=== PATIENT | male | born 1950 | race Caucasian/White ===

== ENCOUNTER 2019-04-03 08:07 | Emergency (ER) | payer MEDICARE, SELFPAY ==
--- NOTE | ~2019-04-03 | CT_ITS ---
EXAMINATION: CT abdomen pelvis w con DATE: 04/03/2019 08:52 INDICATION: Abdominal pain, fever. TECHNIQUE: Computed tomography (CT) of the abdomen and pelvis was performed with 100 cc Omnipaque 350 intravenous contrast. Automated exposure control and iterative reconstruction technique were employe d. Exam dose: 367.30 mGy-cm total exam DLP. COMPARISON: None. FINDINGS: Small fat-containing right foramen of Bochdalek hernia. There are 2 calcified left lower lobe pulmonary granulomas and lower left calcified mediastinal nodes . Normal heart size. Coronary artery calcification. No pericardial or pleural effusion. The gallbladder is distended with borderline gallbladder wall thickening. No pericholecystic fluid or stranding. No bile duct or pancreatic duct dilatation. There is mild surface nodularity of the liver suggesting possible cirrhosis. No hepatic space-occupyi ng mass lesion is detected. Spleen measures approximately 11.8 cm vertical dimension, within upper li mits of normal. There are calcified splenic granulomas. No pancreatic mass lesion or calcification. Normal morphology of the adrenal glands. Bilateral renal atrophy, right greater than left. Other than very occasional probable small renal cys ts, no renal mass lesion is noted. No urinary tract calculus or hydroureteronephrosis. The urinary bl adder is unremarkable. Prostate calcifications. There is atherosclerotic calcification of the abdominal aorta, iliac and femoral arteries, but no ane urysm. No intraperitoneal or retroperitoneal or pelvic mass lesion or adenopathy or ascites. Normal appendix. No bowel obstruction. There is a prominent amount of fecal material within the rectu m and left colon. No intraperitoneal free air. Very small fat-containing inguinal hernia. Multilevel degenerative disc disease of the lumbar spine, especially at L2-3 and L4-5. IMPRESSION: Distended gallbladder with borderline gallbladder wall thickening. Consider gallbladder u ltrasound and possibly radionuclide hepatobiliary scan as clinically appropriate Surface nodularity of liver, suggesting cirrhosis Renal atrophy and probable small renal cysts Reviewed, dictated and finalized at [facility]. Reviewed, dictated and finalized at location [facility]. CTOR OF MAINTENANCE IMPRESSION: Distended gallbladder with borderline gallbladder wall thickening. Consider gallbladder ultrasound and possibly radionuclide hepatobiliary scan as clinically appropriate Surface nodularity of liver, suggesting cirrhosis Renal atrophy and probable small renal cysts
--- NOTE | ~2019-04-03 | US_ITS ---
EXAMINATION: US right upper quadrant DATE: 04/03/2019 09:57 INDICATION: Abdominal pain. Nausea and vomiting. TECHNIQUE: Multiple grayscale and Doppler ultrasound images of the abdomen were obtained. COMPARISON: CT abdomen and pelvis 04/03/2019 FINDINGS: The visualized portions of the head, body, and tail of the pancreas are normal. The pancrea s is normal without focal lesion. The liver demonstrates coarsened echotexture and surface nodularity , consistent with cirrhosis. The gallbladder is distended and contains sludge. No gallstones or gallb ladder wall thickening. There was no sonographic Orourke sign. The common duct is dilated to 9 mm. IMPRESSION: 1. Gallbladder sludge and gallbladder distention, which may be secondary to fasting. No gallstones or gallbladder wall thickening to suggest acute cholecystitis. 2. Mildly dilated common duct. 3. Cirrhosis of the liver. Reviewed, dictated and finalized at location [facility]. ER SERVICE ATTENDANT IMPRESSION: 1. Gallbladder sludge and gallbladder distention, which may be secondary to fas ting. No gallstones or gallbladder wall thickening to suggest acute cholecystit is. 2. Mildly dilated common duct. 3. Cirrhosis of the liver.
[2019-04-03 08:05] VITALS: BP 154/89; PULSE 102; RESP 20; TEMP 37.9; O2SAT 95
--- NOTE | 2019-04-03 08:11 | ED.NAVMDI ---
HPI - Nausea/Vomiting/Diarrhea General Chief complaint: Nausea/Vomiting/Diarrhea Stated complaint: N/D/COUGH/FEVER Time Seen by Provider: 04/03/19 08:10 Source: patient Mode of arrival: EMS Limitations: no limitations History of Present Illness HPI Narrative: Pt is a 68 y/o male who presents to the ED, via EMS, with c/o N/V/D that started yesterday. Pt reports associated fever and ABD pain, but denies a cough. He has a H/o cirrhosis but states he has not drank EtOH in 30 years. MD elicited complaint: nausea, vomiting and diarrhea Onset (ago): day(s) (yesterday) Associated nausea: Yes Associated abdominal pain: Yes Location of pain: diffuse Associated symptoms: fever/chills Treatment prior to arrival: none Related Data Home Medications Medication Instructions Recorded Confirmed amlodipine 10 mg PO DAILY 02/19/19 02/19/19 furosemide [Lasix] 20 mg PO DAILY 02/19/19 02/19/19 gabapentin 600 mg PO TID 02/19/19 02/19/19 hydromorphone [Dilaudid] 8 mg PO Q6H PRN 02/19/19 02/19/19 lansoprazole 30 mg PO DAILY 02/19/19 02/19/19 lubiprostone [Amitiza] 24 mcg PO BID 02/19/19 02/19/19 ondansetron HCl 8 mg PO Q8H 02/19/19 02/19/19 trazodone 300 mg PO HS 02/19/19 02/19/19 zolpidem 12.5 mg PO HS PRN 02/19/19 02/19/19 Allergies Allergy/AdvReac Type Severity Reaction Status Date / Time haloperidol Allergy Severe ANAPHYLAXIS Verified 04/03/19 08:11 Review of Systems Review of Systems: All systems reviewed & are unremarkable except as noted in HPI and below Constitutional: Constitutional: Reports fever(s) Respiratory: Respiratory: Denies cough Gastrointestinal: Gastrointestinal: Reports abdominal pain, Reports diarrhea, Reports nausea and Reports vomiting PMFSH Past Medical History Medical History Arthritis Cirrhosis GERD (gastroesophageal reflux disease) HTN (hypertension) Leg fracture, left Liver disease Surgical History Surgical History History of back surgery Hx of tonsillectomy Social History Social History Smoking status: Never smoker Exam Narrative: Exam Narrative: APPEARANCE: No acute distress, nontoxic, resting in bed HEENT: Normocephalic, atraumatic, OMM RESPIRATORY: No respiratory distress, clear to auscultation bilaterally with no rhonchi wheezing or rales CARDIOVASCULAR: RRR s murmur ABDOMINAL: Soft, nondistended, diffusely tender to palpation, no rebound or guarding MUSCULOSKELETAl: Moves all extremities. No clubbing, cyanosis or edema. NEURO: Awake and alert. Following commands, speech normal, no focal deficits SKIN:: Warm, dry. Normal Color PSYCHIATRIC: Normal affect/mood Course Course Emergency Course: Patient able to drink in ED with no emesis Patient states that they are feeling much better at this time. States abdominal pain has resolved. Repeat abdominal exam shows the patient's abdomen to be soft and nontender. Discussed with patient results of workup and diagnosis. Discussed need for follow-up with primary care physician, reasons to return to the emergency department in proper use of medication. Patient understands and agrees to current treatment plan Consultations Consultation #1: Discussed case with Dr. Mortensen, the general surgeon. Recommends D/C and will follow up. Date: 04/03/19 Time: 12:13 Vital Signs Vital signs: Vital Signs Temperature 100.2 F H 04/03/19 08:05 Pulse Rate 102 H 04/03/19 08:05 Respiratory Rate 20 04/03/19 08:05 Blood Pressure 154/89 H 04/03/19 08:05 Pulse Oximetry 95 04/03/19 08:05 Temperature 98.7 F 04/03/19 11:55 Pulse Rate 68 04/03/19 10:31 Respiratory Rate 16 04/03/19 10:31 Blood Pressure 114/75 04/03/19 10:31 Pulse Oximetry 96 04/03/19 10:31 MDM - Nausea/Vomiting/Diarrhea MDM Narrative Medical decision making narrative: Patient's abdomen is soft without significant pain or sig
[2019-04-03 08:27] LABS: Basophils Percent Auto 0.2 % (0.2-1.2); Eosinophils Percent Auto 0.3 % (0-4.4); Hematocrit 41.4 % (42.0-52.0); Hemoglobin 13.2 g/dL (14.0-18.0); Immature Granulocyte Absolute 0.03 K/mm3 (0.00-0.031); Immature Granulocyte Percent A 0.3 % (0-0.5); Lymphocytes Absolute Auto 0.96 K/mm3 (0.9-3.2); Lymphocytes Percent Auto 10.5 % (18.3-44.2); Mean Corpuscular HGB Conc 31.9 g/dl (32-36); Mean Corpuscular Hemoglobin 29.2 pg (26-34); Mean Corpuscular Volume 91.6 fl (80-100); Mean Platelet Volume 10.4 fl (7.4-10.4); Monocytes Percent Auto 11.2 % (2.6-8.5); Neutrophils Absolute Auto 7.1 K/mm3 (1.3-6.7); Neutrophils Percent Auto 77.5 % (45.5-73.1); Platelet Count Result 108 k/mm3 (150-375); Red Blood Count 4.52 M/mm3 (4.6-6.20); Red Cell Distribution Width 15.2 % (11.5-14.5); White Blood Count 9.2 K/mm3 (4.5-10.0)
[2019-04-03] MEDS: LACTATED RINGERS 1,000 ML 999 ML IV CONT (08:33)
[2019-04-03 08:36] LABS: Prothrombin Time 12.8 Seconds (11.1-14.7)
[2019-04-03 08:37] LABS: Partial Thromboplastin Time 27.2 SECONDS (22.3-36.8)
[2019-04-03 08:39] LABS: Alanine Aminotransferase 126 U/L (4-50); Albumin Level 3.9 g/dL (3.5-5.1); Alkaline Phosphatase 205 U/L (38-126); Aspartate Amino Transferase 143 U/L (17-59); Bilirubin,Total 0.8 mg/dL (0.2-1.3); Blood Urea Nitrogen 27 mg/dL (9-20); Carbon Dioxide 29 mmol/L (22-30); Chloride 94 mmol/L (98-107); Estimated CRCL calculation 56 ml/min; Estimated Glomerular Filt Rate > 60; Glucose 341 mg/dL (75-110); Lipase 159 U/L (23-300); Potassium 3.9 mmol/L (3.4-5.0); Sodium 134 mmol/L (137-145)
[2019-04-03 10:07] LABS: Add Urine Microscopic? YES; Appearance Urine Clear (Clear); Bilirubin Urine Negative (Negative); Blood Urine Negative (Negative); Color Urine Yellow (Yellow); Glucose Urine UA 3+ mg/dL (Negative); Ketones Urine Negative (Negative); Leukocyte Esterase Ur Negative LEU/UL (Negative); Mucus Urine Rare /lpf; Nitrate Urine Negative (Negative); Protein Urine 2+ mg/dL (Negative); RBC Urine 0-2 /hpf (0-2); Urobilinogen Urine Negative mg/dL (<2.0); WBC Urine 0-3 /hpf
[2019-04-03 10:15] LABS: Specific Grav Ur 1.038 (1.001-1.035)
[2019-04-03 10:31] VITALS: BP 114/75; PULSE 68; RESP 16; O2SAT 96
--- NOTE | 2019-04-03 11:35 | PC.NURSE ---
Tolerating liquids well. No vomiting or diarrhea since arrival.
[2019-04-03 11:55] VITALS: TEMP 37.1
== END 2019-04-03 12:24 | disposition home or self-care (01) ==
PROVIDERS: Emergency Provider Emergency Medicine
DX: R11.2 Nausea with vomiting, unspecified (principal); R10.9 Unspecified abdominal pain; I10 Essential (primary) hypertension; K74.60 Unspecified cirrhosis of liver; K21.9 Gastro-esophageal reflux disease without esophagitis; M19.90 Unspecified osteoarthritis, unspecified site; R93.2 Abnormal findings on diagnostic imaging of liver and biliary tract
CPT/HCPCS: 36415; 74177; 76705; 80053; 81001; 83690; 85025; 85610; 85730; 87804; 96360; 99284; J7120; Q9967

== ENCOUNTER 2019-08-24 12:09 | Emergency (ER) | payer MEDICARE, SELFPAY ==
--- NOTE | ~2019-08-24 | XR_ITS ---
[XR ribs LT 2V w CXR 2V ] INDICATION: Left rib pain after recent fall TECHNIQUE: Frontal projection of the upper left ribs, frontal projection of the lower left ribs, obli que projection of all the left ribs, frontal inspiratory chest x-ray for interpretation. FINDINGS: There are no displaced rib fractures identified. There are no soft tissue abnormality see n. There is bibasilar airspace disease which may represent atelectasis or pneumonia. Calcified granul antonio left lung base. There is a right shoulder arthroplasty. IMPRESSION: 1:No acute displaced rib fractures. 2:Bibasilar infiltrates, atelectasis versus pneumonia. Reviewed, dictated and finalized at location A.
[2019-08-24 12:12] VITALS: BP 107/75; PULSE 90; RESP 20; TEMP 36.8; O2SAT 89
--- NOTE | 2019-08-24 12:24 | ECG_ITS ---
Measurements Intervals [place] Rate: 67 P: 50 NH: 164 QRS: -32 QRSD: 101 T: 38 QT: 314 QTc: 333 Interpretive Statements SINUS RHYTHM LEFT AXIS DEVIATION DELAYED PRECORDIAL R/S TRANSITION INFERIOR INFARCT, AGE INDETERMINATE BORDERLINE T WAVE ABNORMALITY- HIGH LATERAL LEADS BASELINE WANDER- I, II, AVR, AVL, AVF, V4-V6 ABNORMAL ECG Electronically Signed On 08-24-2019 14:29:10 CDT by Mainor Salinas D.O.
[2019-08-24 13:02] LABS: Basophils Percent Auto 0.5 % (0.2-1.2); Eosinophils Absolute Auto 0.1 K/mm3 (0-0.3); Eosinophils Percent Auto 2.3 % (0-4.4); Hematocrit 29.4 % (42.0-52.0); Hemoglobin 9.2 g/dL (14.0-18.0); Immature Granulocyte Absolute 0.01 K/mm3 (0.00-0.031); Immature Granulocyte Percent A 0.2 % (0-0.5); Lymphocytes Absolute Auto 0.77 K/mm3 (0.9-3.2); Lymphocytes Percent Auto 18.1 % (18.3-44.2); Mean Corpuscular HGB Conc 31.3 g/dl (32-36); Mean Corpuscular Hemoglobin 27.1 pg (26-34); Mean Corpuscular Volume 86.7 fl (80-100); Mean Platelet Volume 9.5 fl (7.4-10.4); Monocytes Absolute Auto 0.7 K/mm3 (0.1-0.6); Monocytes Percent Auto 16.7 % (2.6-8.5); Neutrophils Absolute Auto 2.7 K/mm3 (1.3-6.7); Neutrophils Percent Auto 62.2 % (45.5-73.1); Platelet Count Result 119 k/mm3 (150-375); Red Blood Count 3.39 M/mm3 (4.6-6.20); Red Cell Distribution Width 18.1 % (11.5-14.5); White Blood Count 4.3 K/mm3 (4.5-10.0)
[2019-08-24 13:11] LABS: Blood Urea Nitrogen 21 mg/dL (9-20); Calcium 7.6 mg/dL (8.4-10.2); Carbon Dioxide 34 mmol/L (22-30); Chloride 97 mmol/L (98-107); Estimated CRCL calculation 48 ml/min; Estimated Glomerular Filt Rate 60; Glucose 287 mg/dL (75-110); Potassium 3.4 mmol/L (3.4-5.0); Sodium 134 mmol/L (137-145)
--- NOTE | 2019-08-24 14:31 | PCRCNOTE ---
Dr. Feng no longer wants ABG. He will cancel.
--- NOTE | 2019-08-24 14:32 | ED.GENADULT ---
HPI - General Adult General Chief complaint: Shortness of Breath/Dyspnea Stated complaint: WEAKNESS, FALL LAST WEEK Time Seen by Provider: 08/24/19 14:21 Source: patient History of Present Illness HPI narrative: Patient 69 years old white male came with pain at the left chest after a fall 1 week ago, tripped and fell at home. Patient denies loss of consciousness, head, neck or back injury. Lately patient have trouble breathing because of pain, pain gets worse with breathing and better remaining still. Related Data Home Medications Medication Instructions Recorded Confirmed amlodipine 10 mg PO DAILY 02/19/19 02/19/19 furosemide [Lasix] 20 mg PO DAILY 02/19/19 02/19/19 gabapentin 600 mg PO TID 02/19/19 02/19/19 hydromorphone [Dilaudid] 8 mg PO Q6H PRN 02/19/19 02/19/19 lansoprazole 30 mg PO DAILY 02/19/19 02/19/19 lubiprostone [Amitiza] 24 mcg PO BID 02/19/19 02/19/19 ondansetron HCl 8 mg PO Q8H 02/19/19 02/19/19 trazodone 300 mg PO HS 02/19/19 02/19/19 zolpidem 12.5 mg PO HS PRN 02/19/19 02/19/19 Allergies Allergy/AdvReac Type Severity Reaction Status Date / Time haloperidol Allergy Severe ANAPHYLAXIS Verified 04/03/19 08:11 Review of Systems Review of Systems: Narrative: CONSTITUTIONAL: Denies fever, chills, or sweats. EYES: Denies visual changes, redness, or discharge. ENT: Denies rhinorrhea, congestion, sore throat, or otalgia. CARDIOVASCULAR: Denies chest pain, palpitations, or edema. RESPIRATORY: Denies cough or dyspnea. GASTROINTESTINAL: Denies abdominal pain, nausea, vomiting, or diarrhea. GENITOURINARY: Denies dysuria or hematuria. SKIN: Denies rash or itching. MUSCULOSKELETAL: Denies back pain, joint pain, or myalgia. NEUROLOGIC: Denies headache, numbness, or weakness. PSYCHIATRIC: Denies anxiety or depression. [facility] Past Medical History Medical History Arthritis Cirrhosis GERD (gastroesophageal reflux disease) HTN (hypertension) Leg fracture, left Liver disease Surgical History Surgical History History of ankle surgery 1983 History of back surgery History of shoulder surgery 2019 Hx of tonsillectomy Social History Social History Smoking status: Former smoker Alcohol intake: former Exam Narrative: Exam Narrative: General appearance: Well-developed, well-nourished Skin: Normal color Head: Normocephalic, nontraumatic Eyes: Clear conjunctiva ENT: Oropharynx normal, ears normal, nose normal Neck: Supple, nontender Chest and respiratory: Airway patent, no respiratory distress, no accessory muscle use Heart: Regular rate/rhythm Abdomen: Soft, nontender, no organomegaly, quiet bowel sounds Vascular: Normal peripheral pulses, normal capillary refill. Musculoskeletal: Normal range of motion, nontender back. Mild diffuse left chest tenderness, no bruises, no swelling or rash Neurologic: Alert and oriented ?3, [employer] HEL[employer] is normal as tested, no gross motor deficit Course Course Emergency Course: Unchanged Vital Signs Vital signs: Vital Signs Temperature 36.8 C 08/24/19 12:12 Pulse Rate 90 08/24/19 12:12 Respiratory Rate 08/24/19 12:12 Blood Pressure 107/75 08/24/19 12:12 Pulse Oximetry 89 L 08/24/19 12:12 Temperature 36.8 C 08/24/19 12:12 Pulse Rate 90 08/24/19 12:12 Respiratory Rate 20 08/24/19 12:12 Blood Pressure 107/75 08/24/19 12:12 Pulse Oximetry 89 L 08/24/19 12:12 Medical Decision Making [facility] Narrative Medical decision making narrative: Chest wall contusion versus rib fracture is my concern. Chest x-ray ordered.
[2019-08-24 14:44] VITALS: BP 102/78; PULSE 88; RESP 18; O2SAT 99
== END 2019-08-24 14:47 | disposition home or self-care (01) ==
PROVIDERS: General Practice; Emergency Provider Emergency Medicine
DX: S20.212A Contusion of left front wall of thorax, initial encounter (principal); M19.90 Unspecified osteoarthritis, unspecified site; K74.60 Unspecified cirrhosis of liver; K21.9 Gastro-esophageal reflux disease without esophagitis; I10 Essential (primary) hypertension; K76.9 Liver disease, unspecified; Z87.891 Personal history of nicotine dependence; W01.0XXA Fall on same level from slipping, tripping and stumbling without subsequent striking against object, initial encounter; R94.31 Abnormal electrocardiogram [ECG] [EKG]
CPT/HCPCS: 36415; 71046; 71100; 80048; 85025; 93005; 99284

== ENCOUNTER 2019-11-04 16:32 | Outpatient (CLI) | payer MEDICARE, SELFPAY ==
--- NOTE | ~2019-11-04 | XR_ITS ---
XR abdomen/kub 1V 11/04/2019 17:01 Indication: Severe malnutrition. Small bowel feeding tube. Procedure: KUB Comparison: No prior studies for comparison. Findings: Feeding tube tip in the jejunum. Nonspecific bowel gas pattern with moderate gas in the tra nsverse colon. No obstruction. Calcification left upper abdomen, likely calcified granuloma. There is pneumobilia. Correlate for previous sphincterotomy. Impression: 1: Feeding tube tip in the jejunum. 2: Pneumobilia. Correlate for previous sphincterotomy and/or cholecystectomy. Reviewed, dictated and finalized at location A. Impression: 1: Feeding tube tip in the jejunum. 2: Pneumobilia. Correlate for previous sphincterotomy and/or cholecystectomy.
== END 2019-11-04 16:33 | disposition home or self-care (01) ==
DX: E43 Unspecified severe protein-calorie malnutrition (principal); Z93.4 Other artificial openings of gastrointestinal tract status
CPT/HCPCS: 74018

== ENCOUNTER 2019-11-08 18:46 | Emergency (ER) | payer MEDICARE, SELFPAY ==
[2019-11-08 18:50] VITALS: BP 97/64; PULSE 70; RESP 17; TEMP 36.3; O2SAT 96
--- NOTE | 2019-11-08 19:05 | ED.GENADULT ---
HPI - General Adult General Chief complaint: Unspecified Stated complaint: need feeding tube removed Time Seen by Provider: 11/08/19 19:04 History of Present Illness HPI narrative: He has a Dobhoff tube in for feedings 2/ to malnutrition. He reports that the tube is clogged and he wants it out. He says that it is supposed to come out tomorrow anyway. His home health nurse tried flushing with hot and cold water without success. She apparently contacted Dr. Mota, who is managing the tube, and was not given the okay to remove the tube today. He reports that his is able to tolerate PO. The tube is uncomfortable and he feels that it gets in the way of him eating. Related Data Home Medications Medication Instructions Recorded Confirmed amlodipine 10 mg PO DAILY 02/19/19 02/19/19 furosemide [Lasix] 20 mg PO DAILY 02/19/19 02/19/19 gabapentin 600 mg PO TID 02/19/19 02/19/19 hydromorphone [Dilaudid] 8 mg PO Q6H PRN 02/19/19 02/19/19 lansoprazole 30 mg PO DAILY 02/19/19 02/19/19 lubiprostone [Amitiza] 24 mcg PO BID 02/19/19 02/19/19 ondansetron HCl 8 mg PO Q8H 02/19/19 02/19/19 trazodone 300 mg PO HS 02/19/19 02/19/19 zolpidem 12.5 mg PO HS PRN 02/19/19 02/19/19 Allergies Allergy/AdvReac Type Severity Reaction Status Date / Time haloperidol Allergy Severe ANAPHYLAXIS Verified 11/08/19 18:47 Review of Systems Review of Systems: All systems reviewed & are unremarkable except as noted in HPI and below Constitutional: Constitutional: Denies fever(s) ENT: Denies epistaxis and Denies sore throat Cardiovascular: Cardiovascular: Denies chest pain Respiratory: Respiratory: Denies dyspnea Gastrointestinal: Gastrointestinal: Denies abdominal pain, Denies nausea and Denies vomiting PMFSH Past Medical History Medical History Arthritis Cirrhosis GERD (gastroesophageal reflux disease) HTN (hypertension) Leg fracture, left Liver disease Surgical History Surgical History History of ankle surgery 1983 History of back surgery History of shoulder surgery 2019 Hx of tonsillectomy Social History Social History Smoking status: Former smoker Alcohol intake: former Gender identity (if verbalized by the patient): Male Exam Const: General: no acute distress, alert and ill appearing chronically Orientation/consciousness: patient oriented x3 HENMT: Other: Dobhoff tube in place with tie through septum Resp: Effort & Inspection: normal respiratory effort Auscultation: clear to auscultation bilaterally Cardio: Rate: regular rate Rhythm: regular rhythm GI: Inspection: non-distended GI Palp: Yes Soft to palpation and No Tenderness to palpation present (GI) Skin: General skin exam: normal color Neuro: General: patient oriented x3 and moves all extremities Speech: normal speech Extrem: General: normal to inspection Psych: Appearance: grossly normal Mental Status: mental status grossly normal Course Vital Signs Vital signs: Vital Signs Temperature 36.3 C L 11/08/19 18:50 Pulse Rate 70 11/08/19 18:50 Respiratory Rate 17 11/08/19 18:50 Blood Pressure 97/64 L 11/08/19 18:50 Pulse Oximetry 96 11/08/19 18:50 Temperature 36.3 C L 11/08/19 18:50 Pulse Rate 70 11/08/19 18:50 Respiratory Rate 17 11/08/19 18:50 Blood Pressure 99/72 L 11/08/19 19:12 Pulse Oximetry 96 11/08/19 18:50 Medical Decision Making MDM Narrative Medical decision making narrative: We will attempt to flush the tube. If this is not successful I will contact Dr. Mota for recommendations Tube remained clogged. Dr. Mota contacted. Okayed tube removal. Tube removed without difficulty Medical Records Medical records reviewed: Yes I reviewed the patient's medical records. Vital Signs Vital Signs: Vital Signs Temperature 36.3 C L 10/26
[2019-11-08 19:12] VITALS: BP 99/72
--- NOTE | 2019-11-08 20:25 | PC.NURSE ---
EDP ordered to have dubhoff removed via verbal order readback. Dubhoff removed.
[2019-11-08 20:33] VITALS: BP 117/76; PULSE 66; RESP 12; O2SAT 99
== END 2019-11-08 20:34 | disposition home or self-care (01) ==
PROVIDERS: Emergency Provider Emergency Medicine
DX: K94.23 Gastrostomy malfunction (principal); Z87.891 Personal history of nicotine dependence; M19.90 Unspecified osteoarthritis, unspecified site; K74.60 Unspecified cirrhosis of liver; K21.9 Gastro-esophageal reflux disease without esophagitis; I10 Essential (primary) hypertension
CPT/HCPCS: 99282

== ENCOUNTER 2019-11-15 00:15 | Emergency (ER) | payer MEDICARE, SELFPAY ==
[2019-11-15] VITALS (10 sets, daily range): BP systolic 92–105; BP diastolic 55–72; PULSE 57–84; RESP 16–20; TEMP 36.6–36.9; O2SAT 96–100
--- NOTE | ~2019-11-15 | XR_ITS ---
XR chest 1V portable DATE: 11/15/2019 01:27 INDICATION: Headache. Recent cholecystectomy. Bronchitis. Hypertension. TECHNIQUE: Portable AP chest on 11/15/2019 at 0123 hours COMPARISON: 08/24/2019 AP and lateral chest FINDINGS: There is minimal infiltrate or atelectasis at the lung bases. The lungs otherwise appear cl ear. Heart size. Aortic calcification. There is old pulmonary granulomatous disease. Diffuse osteopenia. Right glenohumeral joint arthroplasty. Status post anterior cervical spine fusion . IMPRESSION: Minimal infiltrate or atelectasis at the lung bases Reviewed, dictated and finalized at location A.
--- NOTE | ~2019-11-15 | CT_ITS ---
EXAMINATION: CT brain wo con DATE: 11/15/2019 01:20 INDICATION: Headache TECHNIQUE: Computed tomography (CT) of the head was performed without intravenous contrast. The mA wa s adjusted according to patient size. Iterative reconstruction technique was employed. Exam dose: 60 5.33 mGy-cm total exam DLP. COMPARISON: None FINDINGS: No intracranial mass lesion or hemorrhage or cerebrovascular accident. No midline shift or mass effect. There is moderate cerebral and cerebellar volume loss. No subdural or epidural hematoma. No fracture or bone destruction of the cranial vault. There is a 7 mm osteoma of the left frontal sin us. Included paranasal sinuses and mastoid air cells are otherwise unremarkable. IMPRESSION: No significant intracranial abnormality Reviewed, dictated and finalized at [facility]. Reviewed, dictated and finalized at location A.
[2019-11-15] MEDS: METOCLOPRAMIDE HCL INJ 10 MG/2 ML VIAL IV PUSH (01:26)
[2019-11-15] MEDS: diphenhydrAMINE HCl INJ 50 MG/ML VIAL 25 MG IV PUSH (01:26)
[2019-11-15] MEDS: SODIUM CHLORIDE 0.9% IV 1,000 ML 999 ML IV CONT ×2 (01:26→04:05)
--- NOTE | 2019-11-15 01:34 | ED.HA ---
HPI - Headache General Chief Complaint: Headache Stated Complaint: headache Time Seen by Provider: 11/15/19 00:46 Source: patient Mode of arrival: EMS Limitations: no limitations History of Present Illness HPI Narrative: This patient is a 69 year old male with history of cirrhosis, migraine headaches, hepatitis who presents for evaluation of a migraine headache. He states he developed a frontal headache 5 hours ago. His headache has been constant. He denies associated nausea or vomiting. He reports some blurred vision. This headache is similar to his previous migraine headaches. She denies fever, chills, sinus congestion or sore throat. Related Data Home Medications Medication Instructions Recorded Confirmed amlodipine 10 mg PO DAILY 02/19/19 02/19/19 furosemide [Lasix] 20 mg PO DAILY 02/19/19 02/19/19 gabapentin 600 mg PO TID 02/19/19 02/19/19 hydromorphone [Dilaudid] 8 mg PO Q6H PRN 02/19/19 02/19/19 lansoprazole 30 mg PO DAILY 02/19/19 02/19/19 lubiprostone [Amitiza] 24 mcg PO BID 02/19/19 02/19/19 ondansetron HCl 8 mg PO Q8H 02/19/19 02/19/19 trazodone 300 mg PO HS 02/19/19 02/19/19 zolpidem 12.5 mg PO HS PRN 02/19/19 02/19/19 Allergies Allergy/AdvReac Type Severity Reaction Status Date / Time haloperidol Allergy Severe ANAPHYLAXIS Verified 11/08/19 18:47 Review of Systems Review of Systems: All systems reviewed & are unremarkable except as noted in HPI and below Constitutional: Constitutional: Denies chills and Denies fever(s) Eyes: Eyes: Reports change in vision ENT: Denies dizziness, Denies nasal congestion and Denies sore throat Cardiovascular: Cardiovascular: Denies chest pain Respiratory: Respiratory: Denies cough and Reports dyspnea Gastrointestinal: Gastrointestinal: Denies abdominal pain, Denies nausea and Denies vomiting [facility] Past Medical History Medical History (Updated 11/15/19 @ 06:06 by Princess Santos MD) Arthritis Cirrhosis GERD (gastroesophageal reflux disease) HTN (hypertension) Leg fracture, left Liver disease Surgical History Surgical History (Updated 11/15/19 @ 01:38 by Princess Santos MD) History of ankle surgery 1983 History of back surgery History of cholecystectomy History of shoulder surgery 2019 Hx of tonsillectomy Social History Social History Smoking status: Former smoker Alcohol intake: former Gender identity (if verbalized by the patient): Male Exam Const: General: no acute distress, alert and ill appearing chronically Orientation/consciousness: patient oriented x3 Eyes: Pupils: Equal, round and reactive pupils present EOM: EOMs intact bilaterally Chest: Chest palpation & inspection: normal inspection of the chest Resp: Effort & Inspection: normal respiratory effort and no retractions Auscultation: clear to auscultation bilaterally Cardio: Rate: regular rate Rhythm: regular rhythm Heart sounds: no murmurs GI: GI Palp: Yes Soft to palpation, No Tenderness to palpation present (GI), No Guarding due to palpation present (GI) and No Rigid due to palpation Other: healing laparoscopic incision to abdomen, incisions intact, no erythema or drainage Skin: General skin exam: normal color Rashes: no rashes Neuro: General: patient oriented x3, moves all extremities and CN's II-XI intact bilaterally Course Reevaluation(s) Reevaluation #1: PAtient states he feels better and he is ready for discharge home. Date: 11/15/19 Time: 03:59 Reevaluation #2: Patient states his headache has completely resolved. BP 101/67. Patient has chronic anemia. Date: 11/15/19 Time: 06:01 Vital Signs Vital signs: Vital Signs Temperature 98.4 F 11/15/19 00:15 Pulse Rate 84 11/15/19 00:15 Respiratory Rate 20 11/15/19 00:15 Pulse Oximetry 100 11/15/19 00:15 Temperature 97.9 F 11/15/19 07:07 Pulse Rate 77 11/15/19 07:07 Respiratory Rate 18 11/15/19 07:07 Blood
[2019-11-15 01:52] LABS: Basophils Percent Auto 0.2 % (0.2-1.2); Eosinophils Absolute Auto 0.1 K/mm3 (0-0.3); Eosinophils Percent Auto 1.1 % (0-4.4); Hematocrit 26.2 % (42.0-52.0); Hemoglobin 8.2 g/dL (14.0-18.0); Immature Granulocyte Absolute 0.04 K/mm3 (0.00-0.031); Immature Granulocyte Percent A 0.5 % (0-0.5); Lymphocytes Absolute Auto 1.35 K/mm3 (0.9-3.2); Lymphocytes Percent Auto 16.8 % (18.3-44.2); Mean Corpuscular HGB Conc 31.3 g/dl (32-36); Mean Corpuscular Hemoglobin 27.1 pg (26-34); Mean Corpuscular Volume 86.5 fl (80-100); Mean Platelet Volume 9.1 fl (7.4-10.4); Monocytes Percent Auto 12.3 % (2.6-8.5); Neutrophils Absolute Auto 5.6 K/mm3 (1.3-6.7); Neutrophils Percent Auto 69.1 % (45.5-73.1); Platelet Count Result 196 k/mm3 (150-375); Red Blood Count 3.03 M/mm3 (4.6-6.20); Red Cell Distribution Width 18.2 % (11.5-14.5)
--- NOTE | 2019-11-15 01:58 | PC.NURSE ---
Patient's calls to get update on patient.
[2019-11-15 02:03] LABS: Alanine Aminotransferase 59 U/L (4-50); Albumin Level 2.8 g/dL (3.5-5.1); Alkaline Phosphatase 113 U/L (38-126); Anion Gap 7 mmol/L (8-16); Aspartate Amino Transferase 70 U/L (17-59); Bilirubin,Total 0.3 mg/dL (0.2-1.3); Blood Urea Nitrogen 24 mg/dL (9-20); Carbon Dioxide 25 mmol/L (22-30); Chloride 99 mmol/L (98-107); Estimated CRCL calculation 36 ml/min; Estimated Glomerular Filt Rate 47; Glucose 194 mg/dL (75-110); Potassium 3.9 mmol/L (3.4-5.0); Sodium 131 mmol/L (137-145)
--- NOTE | 2019-11-15 06:08 | PC.NURSE ---
This nurse contacted patient's SO and informed her that patient is ready for discharge. She stated she will be on her way after daylight.
== END 2019-11-15 07:08 | disposition home or self-care (01) ==
PROVIDERS: Emergency Provider General Practice
DX: R51 Headache (principal); K74.60 Unspecified cirrhosis of liver; K21.9 Gastro-esophageal reflux disease without esophagitis; M19.90 Unspecified osteoarthritis, unspecified site; I10 Essential (primary) hypertension; Z87.891 Personal history of nicotine dependence; I51.7 Cardiomegaly; D64.9 Anemia, unspecified
CPT/HCPCS: 36415; 70450; 71045; 80053; 85025; 96361; 96374; 96375; 99284; J0131; J1200; J2765; J7030

== ENCOUNTER 2020-02-10 09:21 | Emergency (ER) | payer MEDICARE, SELFPAY ==
--- NOTE | ~2020-02-10 | XR_ITS ---
XR shoulder LT min 2V DATE: 02/10/2020 10:05 INDICATION: Fall down stairs. Bruising and swelling proximal left arm TECHNIQUE: 3 views COMPARISON: None FINDINGS: There is a recent linear oblique fracture through the lateral aspect of the surgical neck, extending inferomedially into the proximal humeral shaft. There is no significant displacement or ang ulation. Diffuse osteopenia. No other fracture or any dislocation is evident. Normal alignment at the acromioclavicular and glenoh umeral joints. Status post anterior cervical spine surgical fusion. IMPRESSION: Nondisplaced proximal left humeral fracture Reviewed, dictated and finalized at location B. AUR[employer] AREA MANAGER
--- NOTE | ~2020-02-10 | XR_ITS ---
XR hand LT 2V 02/10/2020 11:34 Indication: Left hand pain after fall Procedure: 2 views left hand Comparison: Left wrist series dated 09/17/2018 Findings: Osteopenia. No acute fracture or traumatic malalignment. No focal soft tissue abnormality. No foreign bodies. Impression: 1: No acute fracture. Reviewed, dictated and finalized at location A. ULA WEIGHER Impression: 1: No acute fracture.
--- NOTE | 2020-02-10 09:29 | PC.NURSE ---
[facility]: [place] [phone]. alexsandra [facility] [phone]
[2020-02-10 09:32] VITALS: BP 109/85; PULSE 77; RESP 16; TEMP 37.1; O2SAT 95
--- NOTE | 2020-02-10 10:12 | ED.GENADULT ---
HPI - General Adult General Chief complaint: Extremity Injury, Upper Stated complaint: fall, poss dislocated shoulder Time Seen by Provider: 02/10/20 09:27 Source: patient Mode of arrival: ambulatory Limitations: no limitations History of Present Illness HPI narrative: Patient presents with chief complaint of pain to the proximal aspect of his left shoulder that began last night at approximately 7 PM when he was trying to get outside of his home and fell. Patient states he has dislocated his shoulder in the past and thinks that this is the case at the present time. Patient denies hitting his head, loss of consciousness, changes in vision or hearing, vomiting, or any other areas of acute pain. 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 Patient denies headache or head pain or injury. Patient states he has diabetes and hypertension. He declines to list the rest of his medical conditions stating it is a lot. Asked about patient daily medications he only mentions medication for pain but does not disclose why he is on medication for pain. Related Data Home Medications Medication Instructions Recorded Confirmed amlodipine 02/10/20 02/10/20 digoxin 02/10/20 furosemide 02/10/20 gabapentin 02/10/20 insulin glargine [Lantus Solostar SUBCUT 02/10/20 U-100 Insulin] insulin lispro [Humalog KwikPen unit SUBCUT 02/10/20 Insulin] [id number] [Creon] cap PO 02/10/20 lubiprostone [Amitiza] mcg PO 02/10/20 metoprolol tartrate 02/10/20 omega-3 acid ethyl esters PO 02/10/20 ondansetron HCl 02/10/20 oxycodone 02/10/20 oxycodone myristate [Xtampza ER] mg 02/10/20 pantoprazole PO 02/10/20 sumatriptan succinate mg PO 02/10/20 testosterone cypionate mg 02/10/20 trazodone 02/10/20 zolpidem PO 02/10/20 Allergies Allergy/AdvReac Type Severity Reaction Status Date / Time haloperidol Allergy Severe ANAPHYLAXIS Verified 02/10/20 09:32 Review of Systems Review of Systems: Narrative: CONSTITUTIONAL: Denies fever, chills, or sweats. EYES: Denies visual changes, redness, or discharge. ENT: Denies rhinorrhea, congestion, sore throat, or otalgia. CARDIOVASCULAR: Denies chest pain, palpitations, or edema. RESPIRATORY: Denies cough or dyspnea. GASTROINTESTINAL: Denies abdominal pain, nausea, vomiting, or diarrhea. GENITOURINARY: Denies dysuria or hematuria. SKIN: Denies rash or itching. MUSCULOSKELETAL: Reports left shoulder pain denies back pain, joint pain, or myalgia. NEUROLOGIC: Denies headache, numbness, dizziness, or weakness. PSYCHIATRIC: Denies anxiety or depression. [facility] Past Medical History Medical History (Updated 02/10/20 @ 11:47 by Una Castellanos PA-C) Arthritis Cirrhosis GERD (gastroesophageal reflux disease) HTN (hypertension) Leg fracture, left Liver disease Surgical History Surgical History (Updated 11/15/19 @ 01:38 by Princess Santos MD) History of ankle surgery 1982 History of back surgery History of cholecystectomy History of shoulder surgery 2018 Hx of tonsillectomy Social History Social History Smoking status: Former smoker Alcohol intake: former Gender identity (if verbalized by the patient): Male Exam Narrative: Exam Narrative: GENERAL: Patient appears unkempt but is not in acute distress HEAD: Normocephalic, atraumatic. EYES: PERRLA and EOMI. NECK: Supple. No adenopathy or masses. No pain with range of motion or palpation. CHEST: not tender to palpation. Clear to auscultation. No respiratory distress. No wheezes rales or rhonchi HEART: Regular rate and rhythm. EXTREMITIES: There is bruising anteriorly to the left arm. Patient is unable to actively abduct left shoulder. Tender to palpation to the proximal aspect of the left shoulder.Patient denies saúl tenderness distal to proximal shoulder SKIN: Ecch
[2020-02-10 12:15] VITALS: BP 117/69; PULSE 60; RESP 16; O2SAT 96
== END 2020-02-10 12:15 | disposition home or self-care (01) ==
PROVIDERS: Emergency Provider Emergency Medicine
DX: S42.202A Unspecified fracture of upper end of left humerus, initial encounter for closed fracture (principal); W19.XXXA Unspecified fall, initial encounter; M19.90 Unspecified osteoarthritis, unspecified site; K21.9 Gastro-esophageal reflux disease without esophagitis; I10 Essential (primary) hypertension; K74.60 Unspecified cirrhosis of liver
CPT/HCPCS: 73030; 73120; 99284

== ENCOUNTER 2020-05-27 17:40 | Emergency (ER) | payer MEDICARE, SELFPAY ==
--- NOTE | ~2020-05-27 | XR_ITS ---
EXAMINATION: XR ankle LT min 3V DATE: 05/27/2020 20:34 INDICATION: Left ankle pain. TECHNIQUE: 4 views of left ankle were obtained. COMPARISON: None. FINDINGS: Bone alignment is normal. There is linear sclerosis in calcaneal tuberosity. There is an ol d healed fracture of distal tibia with internal fixation with 6 screws. Two of the screws extend into the tibiotalar joint. There is severe osteoarthritis of the tibiotalar joint. There is likely ankylo sis of the subtalar joint. There is mild midfoot osteoarthritis. Osteopenia is noted. IMPRESSION: 1. 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 2. Linear sclerosis in calcaneal tuberosity, which may be a stress fracture. Reviewed, dictated and finalized at location A.
--- NOTE | ~2020-05-27 | XR_ITS ---
EXAMINATION: XR chest 1V portable DATE: 05/27/2020 20:33 INDICATION: Fever. TECHNIQUE: A single frontal view of the chest was obtained on 2 radiographs. COMPARISON: Chest single view 11/15/2019, CT abdomen and pelvis 04/03/2019 FINDINGS: There are airspace opacities in right lower lung zone. No pleural effusion or pneumothorax. The heart size is normal. There is a right shoulder arthroplasty. There are changes of anterior fusi on procedure in cervical spine. IMPRESSION: 1. Airspace opacities in right lower lung zone, consistent with atelectasis versus pneumonia. Reviewed, dictated and finalized at location A. IMPRESSION: 1. Airspace opacities in right lower lung zone, consistent with atelectasis erlinda melania pneumonia.
--- NOTE | ~2020-05-27 | XR_ITS ---
EXAMINATION: XR knee RT 3V DATE: 05/27/2020 20:34 INDICATION: Right knee pain. TECHNIQUE: 3 views of right knee were obtained. COMPARISON: None. FINDINGS: Bone alignment is normal. No fracture. There is mild tricompartmental osteoarthritis. No kn ee joint effusion. IMPRESSION: 1. Mild right knee osteoarthritis. Reviewed, dictated and finalized at location A.
[2020-05-27 18:05] VITALS: BP 145/81; PULSE 78; RESP 20; TEMP 38.3; O2SAT 95
[2020-05-27 20:15] VITALS: BP 144/85; PULSE 68; RESP 19; TEMP 37.4; O2SAT 99
--- NOTE | 2020-05-27 20:19 | ED.GENADULT ---
HPI - General Adult General Chief complaint: Extremity Injury, Lower Stated complaint: painful knee and ankle Time Seen by Provider: 05/27/20 19:41 Source: patient and old records reviewed Mode of arrival: ambulatory Limitations: no limitations History of Present Illness HPI narrative: Patient is a 70-year-old male who presents with right knee pain and left ankle pain that began roughly a day ago patient is unsure as to any injury or trauma notes that he may have struck his left heel on an object patient notes aching pain in both locations patient is followed by orthopedic surgery at an outside hospital patient notes that he did have an episode of emesis today also notes that he believes he may have had a fever upon arrival today just told that he was warm patient denies any source for the fever denies any URI symptoms abdominal pain urinary or bowel issues patient on arrival in no distress notes that he has been taking his narcotic pain medication with some relief patient has not been seen for these complaints and on arrival is in the room in no distress and does not appear uncomfortable. Checking the oral temperature patient does not have a fever. Related Data Home Medications Medication Instructions Recorded Confirmed amlodipine 02/10/20 02/10/20 digoxin 02/10/20 furosemide 02/10/20 gabapentin 02/10/20 insulin glargine [Lantus Solostar SUBCUT 02/10/20 U-100 Insulin] insulin lispro [Humalog KwikPen unit SUBCUT 02/10/20 Insulin] [id number] [Creon] cap PO 02/10/20 lubiprostone [Amitiza] mcg PO 02/10/20 metoprolol tartrate 02/10/20 omega-3 acid ethyl esters PO 02/10/20 ondansetron HCl 02/10/20 oxycodone 02/10/20 oxycodone myristate [Xtampza ER] mg 02/10/20 pantoprazole PO 02/10/20 sumatriptan succinate mg PO 02/10/20 testosterone cypionate mg 02/10/20 trazodone 02/10/20 zolpidem PO 02/10/20 Allergies Allergy/AdvReac Type Severity Reaction Status Date / Time haloperidol Allergy Severe ANAPHYLAXIS Verified 02/10/20 09:32 Review of Systems Review of Systems: All systems reviewed & are unremarkable except as noted in HPI and below PMFSH Past Medical History Medical History Arthritis Cirrhosis GERD (gastroesophageal reflux disease) HTN (hypertension) Leg fracture, left Liver disease Surgical History Surgical History History of ankle surgery 1982 History of back surgery History of cholecystectomy History of shoulder surgery 2019 Hx of tonsillectomy Social History Social History Smoking status: Former smoker Alcohol intake: former Gender identity (if verbalized by the patient): Male Exam Narrative: Exam Narrative: GENERAL: Well-appearing, well-nourished, and in no acute distress. HEAD: Normocephalic, atraumatic. EYES: PERRLA and EOMI. ENT: Nares clear, no rhinorrhea or epistaxis. Mucous membranes moist. CHEST: Clear to auscultation. No respiratory distress. No wheezes rales or rhonchi HEART: Regular rate and rhythm. No murmur heard. Normal peripheral pulses. ABDOMEN: Soft, nontender, nondistended EXTREMITIES: Normal range of motion. No edema. Tenderness of the posterior left ankle with chronic swelling no erythema or warmth to touch. Tenderness of the anterior right knee no erythema or warmth to touch. Patient with excoriations of the extremities secondary to scratching SKIN: Warm, dry, no rash. NEURO: No focal deficits. Alert and oriented x3. Cranial nerves II through XII grossly intact. Normal speech. Neurovascularly intact. Capillary refill less than 2 seconds PSYCH: Normal mood and affect. Course Course Emergency Course: Patient will be placed in a short leg splint for the left ankle given the potential for stress fracture notes he will follow with his orthopedist Saturday. Suze
[2020-05-27 20:51] VITALS: BP 150/88; PULSE 74; RESP 21; TEMP 36.8; O2SAT 95
[2020-05-27 20:52] VITALS: BP 142/80; PULSE 69; RESP 18; TEMP 36.8; O2SAT 94
== END 2020-05-27 21:20 | disposition home or self-care (01) ==
PROVIDERS: Emergency Provider Emergency Medicine
DX: M25.572 Pain in left ankle and joints of left foot (principal); M25.561 Pain in right knee; K21.9 Gastro-esophageal reflux disease without esophagitis; K74.60 Unspecified cirrhosis of liver; I10 Essential (primary) hypertension; M19.90 Unspecified osteoarthritis, unspecified site; Z79.4 Long term (current) use of insulin; Z87.891 Personal history of nicotine dependence; R91.8 Other nonspecific abnormal finding of lung field; M19.072 Primary osteoarthritis, left ankle and foot; M89.8X7 Other specified disorders of bone, ankle and foot
CPT/HCPCS: 29515; 71045; 73562; 73610; 99284

== ENCOUNTER 2021-02-01 15:20 | Emergency (ER) | payer MEDICARE, SELFPAY ==
--- NOTE | ~2021-02-01 | XR_ITS ---
EXAMINATION: XR lumbar spine 2-3V EXAM DATE: 02/01/2021 16:00 INDICATION: Fall in tub x 5days/pain low back. TECHNIQUE: Lumber spine frontal, lateral, lateral L5-S1 projections for interpretation. There is no prior study for comparison. FINDINGS: There is moderate to severe disc disease L2-3, L4-5, moderate at the other lumbar levels. Moderate to severe L4-5 facet arthropathy. There is an age-indeterminate compression fracture at T11 with mild to moderate anterior wedging. Mild anterior wedging of T12 which appears chronic along with a mild central compression of L2. Mild to moderate abdominal aortic arterial sclerosis. Mild lumbar levoscoliosis. Sacrum, sacroiliac joints, sacral arcuate lines are intact. IMPRESSION: 1. T11 age-indeterminate mild to moderate compression fracture. 2. Spondylosis and other more chronic appearing mild compression fractures. Reviewed, dictated and finalized at location A. ATOR SPECIALIST COMMUNICATIONS
--- NOTE | ~2021-02-01 | XR_ITS ---
EXAMINATION: XR pelvis 1-2V EXAM DATE: 02/01/2021 16:00 INDICATION: Fell in bathtub, pelvic pain. Initial encounter. TECHNIQUE: Pelvis frontal projection(s) obtained and reviewed. There is no prior study for compariso n. FINDINGS: Pelvic ring appears intact. Sacrum, sacroiliac joints, sacral arcuate lines are intact. Th ere is a left hip gamma nail in position. There is mild/moderate symmetric bilateral hip primary oste oarthritis. IMPRESSION: No acute pelvic fracture suspected. Reviewed, dictated and finalized at location A. H ASSEMBLER [employer]LECTRICAL
[2021-02-01 15:41] VITALS: BP 129/79; PULSE 51; RESP 18; TEMP 36.3; O2SAT 100
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
== END 2021-02-01 16:59 | disposition home or self-care (01) ==
PROVIDERS: Emergency Provider Emergency Medicine; PCP Family Medicine
DX: S20.222A Contusion of left back wall of thorax, initial encounter (principal); W01.0XXA Fall on same level from slipping, tripping and stumbling without subsequent striking against object, initial encounter; M51.36 Other intervertebral disc degeneration, lumbar region; M19.90 Unspecified osteoarthritis, unspecified site; K74.60 Unspecified cirrhosis of liver; K21.9 Gastro-esophageal reflux disease without esophagitis; I10 Essential (primary) hypertension
CPT/HCPCS: 72100; 72170; 99214; G0463

== ENCOUNTER 2021-02-08 10:35 | Inpatient (IN) | payer MEDICARE, SELFPAY ==
[2021-02-08] VITALS (59 sets, daily range): BP systolic 98–138; BP diastolic 53–100; PULSE 41–81; RESP 8–26; TEMP 36.7–37.1; O2SAT 68–100; BMI 19.6
--- NOTE | ~2021-02-08 | XR_ITS ---
EXAMINATION: XR pelvis 1-2V DATE: 02/08/2021 11:11 INDICATION: Fall. TECHNIQUE: An anteroposterior view of the pelvis was obtained on 2 radiographs. COMPARISON: Pelvis radiograph 02/01/2021 FINDINGS: There is lumbar levocurvature and severe spondylosis. No acute fracture. There is internal fixation of proximal left femur with antegrade intramedullary isaiah, distal interlocking screw, and fem oral head/neck screw. There is mild osteoarthritis of the hips. IMPRESSION: 1. Mild osteoarthritis of the hips. Reviewed, dictated and finalized at location A. ORM ATTENDANT
--- NOTE | ~2021-02-08 | CT_ITS ---
EXAMINATION: CT brain wo [facility] EXAM DATE: 02/08/2021 11:19 INDICATION: Head injury, weakness. TECHNIQUE: Spiral CT of the head was performed without contrast. Axial, coronal and sagittal images were reviewed. The dose-length product (DLP) for this examination was 605.33 mGy-cm. The exposure w as tailored according to patient size, and iterative reconstruction (ASIR) was used as additional dos e reduction technique. Comparison is made to prior examination from 11/15/2019. FINDINGS: There is no acute intraparenchymal hemorrhage. No evidence of intraparenchymal brain mass lesion. No evidence of acute infarction. There is mild microangiopathy and moderate cerebral atrophy . There is no mass effect or midline shift. The ventricles are normal in size. There are no extra-a xial collections. There are no acute calvarial fractures. Patient has had left-sided ocular lens agustín pat. Soft tissue is unremarkable. There is small to moderate amount of right maxillary sinus muco periosteal thickening with some fluid. IMPRESSION: 1. No acute intracranial findings. Reviewed, dictated and finalized at location B. NITIES AND LANGUAGES PROFESSOR
--- NOTE | ~2021-02-08 | XR_ITS ---
EXAMINATION: XR chest 2V EXAM DATE: 02/08/2021 11:10 INDICATION: weakness HX AFIB . TECHNIQUE: Frontal and lateral projections of the chest obtained and reviewed. Comparison is made to prior examination from 05/27/2020. FINDINGS: Right shoulder arthroplasty hardware. Left basilar granuloma. The lungs are otherwise elizabeth r. There are no pleural effusions. The cardiomediastinal silhouette is within normal limits. There is no pneumothorax suspected. Mild bony degenerative changes. There is aortic arteriosclerosis. IMPRESSION: No acute cardiopulmonary findings. Reviewed, dictated and finalized at location B. ILIZER SUPERVISOR
--- NOTE | 2021-02-08 10:52 | ECG_ITS ---
Measurements Intervals [place] Rate: 45 P: 91 OK: 161 QRS: -44 QRSD: 98 T: 57 QT: 512 QTc: 446 Interpretive Statements SINUS BRADYCARDIA LEFT AXIS DEVIATION DELAYED PRECORDIAL R/S TRANSITION PROLONGED QT INTERVAL BASELINE ARTIFACT- II, III, AVR, AVL, AVF, V1-V2, V4-V6 ABNORMAL ECG Electronically Signed On 02-08-2021 13:20:47 NETWORK SUPPORT TECHNICIAN by Mainor Salinas D.O.
--- NOTE | 2021-02-08 11:05 | ED.WEAKNESS ---
HPI - Weakness General Chief complaint: Weakness Stated complaint: WEAK,FALLS ELEVATED BLD SUGAR Time Seen by Provider: 02/08/21 10:37 Source: patient Mode of arrival: EMS Limitations: no limitations History of Present Illness HPI Narrative: This is a 70-year-old male that presents to the emergency department for generalized weakness ongoing for weeks. Reports lately he has been getting lightheaded when he stands up. Denies chest pain or shortness of breath. Reports his blood sugars have been running high. Reports he had a couple fall yesterday because he was lightheaded. Denies loss of consciousness or any certain injury. Although he does report he did hit his head. Denies fever, vision changes, vomiting, numbness or weakness. Related Data Home Medications Medication Instructions Recorded Confirmed amlodipine 10 mg PO DAILY 02/01/21 02/01/21 apixaban [Eliquis] 5 mg PO BID 02/01/21 02/01/21 atorvastatin 20 mg PO DAILY 02/01/21 02/01/21 furosemide 40 mg PO DAILY 02/01/21 02/01/21 [id number]-[id number]-jrfdbmg [Creon] 1 cap PO TID 02/01/21 02/01/21 metoprolol tartrate 50 mg PO BID 02/01/21 02/01/21 oxycodone 30 mg PO BID 02/01/21 02/01/21 pantoprazole 40 mg PO DAILY 02/01/21 02/01/21 zolpidem 10 mg PO HS 02/01/21 02/01/21 Allergies Allergy/AdvReac Type Severity Reaction Status Date / Time haloperidol Allergy Severe ANAPHYLAXIS Verified 02/01/21 15:43 Review of Systems Review of Systems: CONSTITUTIONAL: Denies fever EYES: Denies visual changes CARDIOVASCULAR: Denies chest pain, or edema. RESPIRATORY: Denies dyspnea. GASTROINTESTINAL: Denies abdominal pain, nausea, vomiting GENITOURINARY: Denies dysuria MUSCULOSKELETAL: Denies back pain, joint pain, or myalgia. NEUROLOGIC: Denies numbness, or weakness. All systems reviewed & are unremarkable except as noted in HPI and below PMFSH Past Medical History Medical History Arthritis Cirrhosis GERD (gastroesophageal reflux disease) HTN (hypertension) Leg fracture, left Liver disease Surgical History Surgical History History of ankle surgery 1983 History of back surgery History of cholecystectomy History of shoulder surgery 2019 Hx of tonsillectomy Social History Social History Smoking status: Former smoker Alcohol intake: former Gender identity (if verbalized by the patient): Male Exam Narrative: GENERAL: Well-appearing, well-nourished, and in no acute distress. HEAD: Normocephalic, atraumatic. EYES: EOMI. Left pupil is irregular and not reactive to light. Patient does report he recently had cataract surgery on this eye ENT: Nares clear, no rhinorrhea or epistaxis. Mucous membranes moist. Oropharynx without tonsillar hypertrophy exudate or other lesions. Bilateral TMs pearly ordoñez non-bulging NECK: Supple. No adenopathy or masses. No midline cervical spine tenderness CHEST: Clear to auscultation. No respiratory distress. No wheezes rales or rhonchi HEART: Regular rate and rhythm. No murmur heard. Normal peripheral pulses. ABDOMEN: Soft, nontender, nondistended, normal active bowel sounds. BACK: No midline thoracic or lumbar spine tenderness EXTREMITIES: Normal range of motion. No edema or obvious deformity. SKIN: Warm, dry, no rash. NEURO: No focal deficits. Alert and oriented x3. CN II-XII grossly intact PSYCH: Normal mood and affect Course Consultations Consultation #1: Spoke with hospitalist about patient and work-up who accepts admission Date: 02/08/21 Time: 13:30 Vital Signs Vital signs: Vital Signs Pulse Oximetry 90 02/08/21 10:42 Temperature 98.8 F 02/08/21 10:44 Pulse Rate 63 02/08/21 10:51 Respiratory Rate 16 02/08/21 10:45 Blood Pressure 121/83 02/08/21 10:44 Pulse Oximetry 97 02/08/21 10:45 MDM - Weakness MDM Narrative Medical decision making
[2021-02-08 11:34] LABS: Basophils Percent Auto 0.6 % (0.2-1.2); Eosinophils Percent Auto 0.3 % (0-4.4); Hematocrit 39.3 % (42.0-52.0); Hemoglobin 13.3 g/dL (14.0-18.0); Immature Granulocyte Absolute 0.17 K/mm3 (0.00-0.031); Immature Granulocyte Percent A 2.3 % (0-0.5); Lymphocytes Absolute Auto 1.24 K/mm3 (0.9-3.2); Lymphocytes Percent Auto 17.1 % (18.3-44.2); Mean Corpuscular HGB Conc 33.8 g/dl (32-36); Mean Corpuscular Hemoglobin 31.2 pg (26-34); Mean Corpuscular Volume 92.3 fl (80-100); Mean Platelet Volume 9.4 fl (7.4-10.4); Monocytes Absolute Auto 0.6 K/mm3 (0.1-0.6); Monocytes Percent Auto 8.7 % (2.6-8.5); Neutrophils Absolute Auto 5.2 K/mm3 (1.3-6.7); Platelet Count Result 136 k/mm3 (150-375); Red Blood Count 4.26 M/mm3 (4.6-6.20); Red Cell Distribution Width 13.2 % (11.5-14.5); White Blood Count 7.3 K/mm3 (4.5-10.0)
[2021-02-08] MEDS: SODIUM CHLORIDE 0.9% IV 1,000 ML 999 ML IV CONT (11:45)
[2021-02-08 11:46] LABS: Alanine Aminotransferase 19 U/L (4-50); Albumin Level 3.6 g/dL (3.5-5.1); Alkaline Phosphatase 217 U/L (38-126); Anion Gap 11 mmol/L (8-16); Aspartate Amino Transferase 21 U/L (17-59); Bilirubin,Total 0.6 mg/dL (0.2-1.3); Blood Urea Nitrogen 24 mg/dL (9-20); Calcium 8.2 mg/dL (8.4-10.2); Carbon Dioxide 27 mmol/L (22-30); Chloride 87 mmol/L (98-107); Estimated CRCL calculation 35 ml/min; Estimated Glomerular Filt Rate 40; Glucose 471 mg/dL (65-110); Phosphorus 4.5 mg/dL (2.5-4.5); Potassium 3.6 mmol/L (3.4-5.0); Sodium 125 mmol/L (137-145)
[2021-02-08 11:53] LABS: Beta-Hydroxybutyrate/Acetoacetate 0.04 mmol/L (0.02-0.27)
[2021-02-08 12:33] LABS: Add Urine Microscopic? YES; Appearance Urine Clear (Clear); Bilirubin Urine Negative (Negative); Blood Urine Negative (Negative); Color Urine Straw (Yellow); Glucose Urine UA 3+ mg/dL (Negative); Ketones Urine Negative (Negative); Leukocyte Esterase Ur Negative LEU/UL (Negative); Mucus Urine Rare /lpf; Nitrate Urine Negative (Negative); Protein Urine Negative (Negative); RBC Urine 0-2 /hpf (0-2); Specific Grav Ur 1.013 (1.001-1.035); Urobilinogen Urine Negative mg/dL (<2.0); WBC Urine 0-3 /hpf
[2021-02-08] MEDS: INSULIN HUMAN REGULAR (*BKC) 100 UNITS/ML 7 UNITS IV PUSH (13:05)
[2021-02-08 13:34] LABS: Glucose Point of Care 357 mg/dl (65-105)
[2021-02-08] MEDS: SODIUM CHLORIDE 0.9% IV 1,000 ML 75 ML IV CONT (14:52)
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
[2021-02-08] MEDS: oxyCODONE HCL (*CRX) 10 MG TAB SR 12HR PO (17:43)
[2021-02-08] MEDS: oxyCODONE HCL (*CRX) 40 MG TAB SR 12HR 80 MG PO (17:43)
[2021-02-08 18:14] LABS: Glucose Point of Care 257 mg/dl (65-105)
[2021-02-08 18:19] LABS: Hemoglobin A1C 10.8 % (<5.7)
[2021-02-08 22:01] LABS: Glucose Point of Care 372 mg/dl (65-105)
--- NOTE | 2021-02-08 22:59 | PC.NURSE ---
This patient, Michael Abdullahi, was admitted to Medical Room 347-01. Patient/family oriented to hospital policies and general routines including ID bracelet, bed and alarms, visiting hours, pain management, procedures, bathroom and other care routines, personal items, smoking policy, room service/diet, and visiting hours. Information on how to activate the Rapid Response Team has been discussed. Patient/Family are encouraged to report perceived risks to care and to ask questions if they do not understand what they are told or what they should do.
[2021-02-09] VITALS (11 sets, daily range): BP systolic 108–152; BP diastolic 56–113; PULSE 44–68; RESP 16–18; TEMP 36.4–36.6; O2SAT 95–100
[2021-02-09] MEDS: ZOLPIDEM TARTRATE (*CRX) 5 MG TABLET 10 MG PO ×2 (03:22→23:47)
[2021-02-09] MEDS: oxyCODONE HCL (*CRX) 5 MG TAB IR 60 MG PO (03:23)
[2021-02-09] MEDS: traZODone HCL 50 MG TABLET 300 MG PO ×2 (03:26→23:47)
[2021-02-09] MEDS: SODIUM CHLORIDE 0.9% IV 1,000 ML 75 ML IV CONT ×3 (04:15→22:11)
[2021-02-09 06:37] LABS: Hematocrit 33.6 % (42.0-52.0); Hemoglobin 11.3 g/dL (14.0-18.0); Mean Corpuscular HGB Conc 33.6 g/dl (32-36); Mean Corpuscular Hemoglobin 31.1 pg (26-34); Mean Corpuscular Volume 92.6 fl (80-100); Mean Platelet Volume 8.8 fl (7.4-10.4); Platelet Count Result 98 k/mm3 (150-375); Red Blood Count 3.63 M/mm3 (4.6-6.20); White Blood Count 4.4 K/mm3 (4.5-10.0)
[2021-02-09 06:43] LABS: Alanine Aminotransferase 14 U/L (4-50); Albumin Level 2.9 g/dL (3.5-5.1); Alkaline Phosphatase 174 U/L (38-126); Anion Gap 8 mmol/L (8-16); Aspartate Amino Transferase 17 U/L (17-59); Bilirubin,Total 0.5 mg/dL (0.2-1.3); Blood Urea Nitrogen 24 mg/dL (9-20); Calcium 7.8 mg/dL (8.4-10.2); Carbon Dioxide 28 mmol/L (22-30); Chloride 96 mmol/L (98-107); Creatine Kinase 25 U/L (55-170); Estimated CRCL calculation 34 ml/min; Estimated Glomerular Filt Rate 43; Glucose 307 mg/dL (65-110); Magnesium 1.9 mg/dL (1.6-2.3); Potassium 3.9 mmol/L (3.4-5.0); Sodium 132 mmol/L (137-145)
[2021-02-09 07:28] LABS: Thyroid Stimulating Hormone Reflex 0.309 uIU/mL (0.465-4.68)
[2021-02-09 07:49] LABS: Glucose Point of Care 294 mg/dl (65-105)
--- NOTE | 2021-02-09 08:00 | ECG_ITS ---
Measurements Intervals [place] Rate: 57 P: 74 [place]: 144 QRS: -46 QRSD: 93 T: 49 QT: 389 QTc: 379 Interpretive Statements SINUS BRADYCARDIA LEFT AXIS DEVIATION DELAYED PRECORDIAL R/S TRANSITION BORDERLINE ST-T WAVE ABNORMALITY- INF/LAT LEADS BORDERLINE ECG Electronically Signed On 02-09-2021 10:59:39 TELEVISION REPAIRMAN by Mainor Salinas D.O.
[2021-02-09 08:06] LABS: Free T4 Free Thyroxine Reflex 1.98 ng/dL (0.78-2.19)
[2021-02-09] MEDS: ATORVASTATIN 20 MG TABLET PO (08:41)
[2021-02-09] MEDS: EMPAGLIFLOZIN 25 MG TABLET PO (08:41)
[2021-02-09] MEDS: PANTOPRAZOLE 40 MG TABLET PO (08:41)
[2021-02-09] MEDS: LIPASE/AMYLASE/PROTEASE 12,000 UNITS CAP 2 CAP PO ×3 (08:42→16:22)
[2021-02-09] MEDS: GABAPENTIN 300 MG CAPSULE 600 MG PO ×3 (08:42→16:22)
[2021-02-09] MEDS: APIXABAN 5 MG TABLET PO ×2 (08:43→20:13)
[2021-02-09] MEDS: INSULIN ASPART (*BKC) 100 UNITS/ML SUB-Q ×2 (08:44→12:07)
[2021-02-09] MEDS: METOPROLOL TARTRATE 50 MG TAB PO (11:18)
[2021-02-09] MEDS: amLODIPine BESYLATE 5 MG TABLET 10 MG PO (11:19)
[2021-02-09 11:44] LABS: Glucose Point of Care 295 mg/dl (65-105)
[2021-02-09 12:17] LABS: Total Triiodothyronine (T3) 0.76 NG/ML (0.97-1.69)
[2021-02-09 13:24] LABS: Digoxin < 0.4 ng/mL (0.8-2.0)
--- NOTE | 2021-02-09 14:21 | PC.NURSE ---
Patient has been very sleepy since his girlfriend left, denies taking any narcotics. Heart rate has been dropping into the 30's and his blood pressure is lower then it has been 96/59 o2sat is 99% on room air. Patient states he feels fine and that he is just relaxed.
[2021-02-09 16:32] LABS: Glucose Point of Care 193 mg/dl (65-105)
--- NOTE | 2021-02-09 17:14 | PM.IMPN ---
Progress Note: A&P Assessment and Plan (1) Acute kidney injury: Code(s): N17.9 - Acute kidney failure, unspecified Status: Acute Assessment and Plan: Most likely due to dehydration. He will receive IV fluid rehydration overnight and his I/O will be monitored closely. Nephrotoxic agents will be avoided. Repeat renal function in a.m., if no improvement a further workup can be pursued. (2) Hyponatremia: Code(s): E87.1 - Hypo-osmolality and hyponatremia Status: Acute Assessment and Plan: Sodium is 131 when corrected for glucose and that is right around where he typically sits. (3) Bradycardia: Code(s): R00.1 - Bradycardia, unspecified Status: Acute Assessment and Plan: He does not seem to be terribly symptomatic with this though he will be monitored on telemetry to rule out sinus pauses. Continue beta-nahed with parameters. (4) QT prolongation: Code(s): R94.31 - Abnormal electrocardiogram [ECG] [EKG] Status: Acute Assessment and Plan: QT was 512 though QTc is 446. He apparently was taking Zofran at home and that will be discontinued. Continue to monitor on telemetry. Will repeat EKG in a.m. (5) Generalized weakness: Code(s): R53.1 - Weakness Status: Acute Assessment and Plan: Secondary to a combination of the above. Initiate fall precautions. Monitor orthostatic vital signs. PT/OT consulted. (6) Type 2 diabetes mellitus with hyperglycemia: Code(s): E11.65 - Type 2 diabetes mellitus with hyperglycemia Status: Acute Assessment and Plan: Random glucose today was over 400. Initiate sliding scale insulin, Accu-Cheks, and hypoglycemic protocol. Check hemoglobin A1c. (7) Chronic anemia: Code(s): D64.9 - Anemia, unspecified Status: Acute Assessment and Plan: Hemoglobin and hematocrit are stable on review of previous labs. (8) Thrombocytopenia: Code(s): D69.6 - Thrombocytopenia, unspecified Status: Acute Assessment and Plan: This is a chronic finding for the patient and his platelets are stable. Likely related to underlying liver disease. (9) Hypertension: Code(s): I10 - Essential (primary) hypertension Status: Acute Assessment and Plan: Blood pressures were reviewed and they have been stable. We will monitor orthostatic vital signs and continue antihypertensives appropriate. (10) Falls: Code(s): W19.XXXA - Unspecified fall, initial encounter Status: Acute Assessment and Plan: Check orthostatic vital signs. Peripheral neuropathy may be playing some part. Monitor on telemetry to rule out dysrhythmia. Initiate fall precautions. PT/OT consulted. 02/09/2021 Ongoing bradycardia hold beta-nahed and digoxin Consult cardiology Reduce narcotic medication Naloxone p.r.n. Advised to refrain from using marijuana in the hospital setting PT OT Anticipate discharge in 24-48 hours Subjective Date/time seen: 02/09/21 17:14 Patient admitted with generalized weakness his noted to be bradycardic is on multiple anti arrhythmic agents. Digoxin level drawn and is subtherapeutic actually will consult Cardiology for further recommendations regarding his med cardiac medications. Blood glucose is elevated this is being corrected patient has no complaints at time my interview he is found to be smoking a vape with marijuana. Exam Narrative: General: Well-developed male sitting up in bed in no acute distress. Weight: 66.1 kg. BMI: 21.5. HEENT: EOMI. Sclerae anicteric moist mucous membranes Neck: Supple. No obvious carotid bruits. Respiratory: Lungs are clear to auscultation bilaterally. Cardiovascular: S1-S2 with bradycardia Gastrointestinal: Abdomen is soft, nontender, and nondistended with positive bowel sounds. Skin: Warm and dry. No rash or lesions on limited exam. Extremities: No cyanosis, clubbing, or edema. Radial
[2021-02-09] MEDS: INSULIN GLARGINE (*BKC) 100 UNITS/ML 24 UNITS SUB-Q (17:35)
--- NOTE | 2021-02-09 18:55 | PC.NURSE ---
Spoke to Dr. Holden about the heart rate dropping into the 30's at times and occasional pauses. Patient has been consistently in the 40's to low 50's. Blood pressure last was 119/65 and the patient is alert, and orientated says he is relaxed and feels fine. Patient agreed not to smoke his marijuana pen. Metoprolol and digoxin stopped and cardiology will see him in the morning.
[2021-02-09 20:38] LABS: Glucose Point of Care 315 mg/dl (65-105)
[2021-02-10] VITALS (11 sets, daily range): BP systolic 128–168; BP diastolic 51–81; PULSE 35–79; RESP 14–18; TEMP 35.7–36.6; O2SAT 98–99
--- NOTE | 2021-02-10 02:43 | ECG_ITS ---
Measurements Intervals [place] Rate: 38 P: 83 [place]: 177 QRS: -72 QRSD: 98 T: 30 QT: 535 QTc: 428 Interpretive Statements SLOW SINUS BRADYCARDIA LEFT AXIS DEVIATION DELAYED PRECORDIAL R/S TRANSITION BASELINE ARTIFACT- V1-V4 ABNORMAL ECG Electronically Signed On 02-10-2021 6:08:37 RACING BOARD MARKER by Mainor Salinas D.O.
--- NOTE | 2021-02-10 03:46 | PC.NURSE ---
Dr. Scruggs here to see pt and observe Telemetry, with noted NS Hakeem and pauses, EKG did not show pauses. New orders received.
[2021-02-10 04:09] LABS: Basophils Percent Auto 0.2 % (0.2-1.2); Eosinophils Percent Auto 0.4 % (0-4.4); Hematocrit 33.8 % (42.0-52.0); Hemoglobin 11.2 g/dL (14.0-18.0); Immature Granulocyte Absolute 0.09 K/mm3 (0.00-0.031); Immature Granulocyte Percent A 1.9 % (0-0.5); Lymphocytes Absolute Auto 1.31 K/mm3 (0.9-3.2); Lymphocytes Percent Auto 27.5 % (18.3-44.2); Mean Corpuscular HGB Conc 33.1 g/dl (32-36); Mean Corpuscular Hemoglobin 30.9 pg (26-34); Mean Corpuscular Volume 93.4 fl (80-100); Mean Platelet Volume 9.6 fl (7.4-10.4); Monocytes Absolute Auto 0.3 K/mm3 (0.1-0.6); Monocytes Percent Auto 6.7 % (2.6-8.5); Neutrophils Percent Auto 63.3 % (45.5-73.1); Platelet Count Result 106 k/mm3 (150-375); Red Blood Count 3.62 M/mm3 (4.6-6.20); Red Cell Distribution Width 13.1 % (11.5-14.5); White Blood Count 4.8 K/mm3 (4.5-10.0)
[2021-02-10 04:19] LABS: Alanine Aminotransferase 13 U/L (4-50); Albumin Level 2.9 g/dL (3.5-5.1); Alkaline Phosphatase 159 U/L (38-126); Anion Gap 4 mmol/L (8-16); Aspartate Amino Transferase 16 U/L (17-59); Bilirubin,Total 0.2 mg/dL (0.2-1.3); Blood Urea Nitrogen 21 mg/dL (9-20); Calcium 7.8 mg/dL (8.4-10.2); Carbon Dioxide 27 mmol/L (22-30); Chloride 99 mmol/L (98-107); Estimated CRCL calculation 42 ml/min; Estimated Glomerular Filt Rate 55; Glucose 312 mg/dL (65-110); Sodium 130 mmol/L (137-145)
[2021-02-10 05:09] LABS: Digoxin < 0.4 ng/mL (0.8-2.0)
[2021-02-10] MEDS: INSULIN ASPART (*BKC) 100 UNITS/ML SUB-Q (08:32)
[2021-02-10 08:33] LABS: Glucose Point of Care 235 mg/dl (65-105)
--- NOTE | 2021-02-10 08:41 | PM.CNCAR ---
Assessment and Plan Assessment and plan (1) Bradycardia: Code(s): R00.1 - Bradycardia, unspecified <MARYELLEN Davila - Last Filed: 02/10/21 12:10> Status: Acute <MARYELLEN Davila - Last Filed: 02/10/21 12:10> Assessment and Plan: EKG on hospital admission showing sinus bradycardia with a rate of 45 beats per minute. Subsequent EKGs also demonstrates sinus bradycardia. On telemetry he is in sinus bradycardia rate generally 40-55. He has had some pauses, longest pause noted to be 5.22 seconds. He is asymptomatic. blood pressure is stable in fact somewhat hypertensive. He takes digoxin and metoprolol for history of atrial fibrillation - these have been held and rate is improving. Continue to hold metoprolol and digoxin Thyroid function and electrolytes o.k. Continue to monitor on telemetry Consider outpatient athletic monitor on discharge No indication for pacemaker at this time <MARYELLEN Davila - Last Filed: 02/10/21 12:10> (2) Falls: Code(s): W19.XXXA - Unspecified fall, initial encounter <MARYELLEN Davila - Last Filed: 02/10/21 12:10> Status: Acute <MARYELLEN Davila - Last Filed: 02/10/21 12:10> Assessment and Plan: He reports at least 5 recent falls. Unlikely that his falls are secondary to bradycardia but cannot be excluded. He describes dizziness and subsequent falling when he gets out of bed too fast - consistent with orthostasis. Check orthostatic vitals. At this point in time due to many recent falls, anticoagulation is not a safe option for him. Risks and benefits of discontinuing anticoagulation at this time were discussed with the patient and he is in agreement. Perhaps a/c can be resumed in the future when he is no longer falling frequently. <MARYELLEN Davila - Last Filed: 02/10/21 12:10> (3) Acute kidney injury: Code(s): N17.9 - Acute kidney failure, unspecified <MARYELLEN Davila - Last Filed: 02/10/21 12:10> Status: Acute <LAURA DavilaNDmitriy - Last Filed: 02/10/21 12:10> Assessment and Plan: Improving with IV fluids. Management per primary service. <LAURA DavilaNDmitriy - Last Filed: 02/10/21 12:10> (4) Hypertension: Code(s): I10 - Essential (primary) hypertension <Angeles Mascorro CONTRACT RECRUITERDmitriy - Last Filed: 02/10/21 12:10> Status: Acute <LAURA DavilaNDmitriy - Last Filed: 02/10/21 12:10> Assessment and Plan: BP above goal generally. He does describe some symptoms consistent with orthostasis, though. <LAURA DavilaNDmitriy - Last Filed: 02/10/21 12:10> (5) QT prolongation: Code(s): R94.31 - Abnormal electrocardiogram [ECG] [EKG] <Angeles Salinassushil CONTRACT RECRUITERDmitriy - Last Filed: 02/10/21 12:10> Status: Acute <LAURA DavilaNDmitriy - Last Filed: 02/10/21 12:10> Assessment and Plan: QT on presenting EKG 512, QTc 466. Does take Zofran at home which has been stopped. Avoid other QT prolonging medications. <LAURA DavilaNDmitriy - Last Filed: 02/10/21 12:10> Additional Plan Attending Addendum: I personally seen and examined this patient at bedside. I agree with the above documentation and plan of care as outlined. -70-year-old male with history of paroxysmal atrial fibrillation, hypertension, hyperlipidemia, alcohol abuse, chronic narcotic pain medication with history of multiple falls without syncope resulting in hip fracture. He was admitted to this hospital for generalized weakness and multiple falls. Patient was admitted on 02/08/2021 in sinus rhythm and was noted to have intermittently marked bradycardia, sinus pauses up to approximately 5 seconds in dizziness upon standing with documented orthostasis. Exam: NAD, A&Ox3, nonfocal neuro exam No JVD Lungs CTA bilaterally Cardio bradycardic, RRR, S1/S2 Abd soft, NT/ND, +BS Ext no edema, clubbing, or cyanosis Plan of Care: Stop the Toprol and digoxi
[2021-02-10] MEDS: NIFEdipine 30 MG TAB.ER.24 PO (09:17)
[2021-02-10] MEDS: lisinopriL 10 MG TABLET PO (09:17)
[2021-02-10] MEDS: APIXABAN 5 MG TABLET PO (09:18)
[2021-02-10] MEDS: LIPASE/AMYLASE/PROTEASE 12,000 UNITS CAP 2 CAP PO ×2 (09:18→16:26)
[2021-02-10] MEDS: GABAPENTIN 300 MG CAPSULE 600 MG PO ×3 (09:18→18:13)
[2021-02-10] MEDS: PANTOPRAZOLE 40 MG TABLET PO (09:19)
[2021-02-10] MEDS: ATORVASTATIN 20 MG TABLET PO (09:19)
[2021-02-10] MEDS: EMPAGLIFLOZIN 25 MG TABLET PO (09:19)
[2021-02-10 11:59] LABS: Glucose Point of Care 198 mg/dl (65-105)
[2021-02-10] MEDS: SODIUM CHLORIDE 0.9% IV 1,000 ML 75 ML IV CONT ×2 (16:27→23:20)
[2021-02-10 16:30] LABS: Glucose Point of Care 171 mg/dl (65-105)
--- NOTE | 2021-02-10 18:05 | PM.IMPN ---
Progress Note: A&P Assessment and Plan (1) Acute kidney injury: Code(s): N17.9 - Acute kidney failure, unspecified Status: Acute Assessment and Plan: Most likely due to dehydration. He will receive IV fluid rehydration overnight and his I/O will be monitored closely. Nephrotoxic agents will be avoided. Repeat renal function in a.m., if no improvement a further workup can be pursued. (2) Hyponatremia: Code(s): E87.1 - Hypo-osmolality and hyponatremia Status: Acute Assessment and Plan: Sodium is 131 when corrected for glucose and that is right around where he typically sits. (3) Bradycardia: Code(s): R00.1 - Bradycardia, unspecified Status: Acute Assessment and Plan: He does not seem to be terribly symptomatic with this though he will be monitored on telemetry to rule out sinus pauses. Continue beta-nahed with parameters. (4) QT prolongation: Code(s): R94.31 - Abnormal electrocardiogram [ECG] [EKG] Status: Acute Assessment and Plan: QT was 512 though QTc is 446. He apparently was taking Zofran at home and that will be discontinued. Continue to monitor on telemetry. Will repeat EKG in a.m. (5) Generalized weakness: Code(s): R53.1 - Weakness Status: Acute Assessment and Plan: Secondary to a combination of the above. Initiate fall precautions. Monitor orthostatic vital signs. PT/OT consulted. (6) Type 2 diabetes mellitus with hyperglycemia: Code(s): E11.65 - Type 2 diabetes mellitus with hyperglycemia Status: Acute Assessment and Plan: Random glucose today was over 400. Initiate sliding scale insulin, Accu-Cheks, and hypoglycemic protocol. Check hemoglobin A1c. (7) Chronic anemia: Code(s): D64.9 - Anemia, unspecified Status: Acute Assessment and Plan: Hemoglobin and hematocrit are stable on review of previous labs. (8) Thrombocytopenia: Code(s): D69.6 - Thrombocytopenia, unspecified Status: Acute Assessment and Plan: This is a chronic finding for the patient and his platelets are stable. Likely related to underlying liver disease. (9) Hypertension: Code(s): I10 - Essential (primary) hypertension Status: Acute Assessment and Plan: Blood pressures were reviewed and they have been stable. We will monitor orthostatic vital signs and continue antihypertensives appropriate. (10) Falls: Code(s): W19.XXXA - Unspecified fall, initial encounter Status: Acute Assessment and Plan: Check orthostatic vital signs. Peripheral neuropathy may be playing some part. Monitor on telemetry to rule out dysrhythmia. Initiate fall precautions. PT/OT consulted. 02/09/2021 Ongoing bradycardia hold beta-nahed and digoxin Consult cardiology Reduce narcotic medication Naloxone p.r.n. Advised to refrain from using marijuana in the hospital setting PT OT Anticipate discharge in 24-48 hours 02/10/21 cont current care cardio recs appreciated Hold Eliquis, metoprolol, digoxin now. Start aspirin 325 mg daily. ...Explained he would be increased risk for AFib off metoprolol digoxin but given his bradycardia we have no option at this time. Sees furthermore, she developed symptomatic bradycardia, high-grade AV block inter atrial fibrillation with rapid ventricular response intolerant to medical therapy consistent with tachycardia bradycardia syndrome permanent pacemaker implantation BP indicated at that time. Pacemaker implantation is not directly indicated presently but will need to continue to monitor off medical therapy with telemetry. possible dc tomorrow if cleared by cardiology Subjective Date/time seen: 02/10/21 18:05 Patient still with heart rate in the 50s he has been seen by Cardiology medications have been adjusted recommendations appreciated. Patient would like to go home tomorrow he has no complaints at time my interv
[2021-02-10] MEDS: INSULIN GLARGINE (*BKC) 100 UNITS/ML 24 UNITS SUB-Q (18:14)
[2021-02-10 21:02] LABS: Glucose Point of Care 255 mg/dl (65-105)
[2021-02-11] VITALS (9 sets, daily range): BP systolic 105–145; BP diastolic 61–77; PULSE 60–77; RESP 20–21; TEMP 36.4–36.7; O2SAT 100
[2021-02-11] MEDS: LIPASE/AMYLASE/PROTEASE 12,000 UNITS CAP 2 CAP PO ×2 (08:28→12:07)
[2021-02-11] MEDS: GABAPENTIN 300 MG CAPSULE 600 MG PO ×2 (08:28→12:07)
[2021-02-11] MEDS: EMPAGLIFLOZIN 25 MG TABLET PO (08:28)
[2021-02-11] MEDS: NIFEdipine 30 MG TAB.ER.24 PO (08:28)
[2021-02-11] MEDS: ATORVASTATIN 20 MG TABLET PO (08:28)
[2021-02-11] MEDS: lisinopriL 10 MG TABLET PO (08:28)
[2021-02-11] MEDS: INSULIN ASPART (*BKC) 100 UNITS/ML SUB-Q (08:29)
[2021-02-11] MEDS: PANTOPRAZOLE 40 MG TABLET PO (08:29)
[2021-02-11 08:54] LABS: Glucose Point of Care 239 mg/dl (65-105)
[2021-02-11 11:51] LABS: Glucose Point of Care 81 mg/dl (65-105)
[2021-02-11] MEDS: SODIUM CHLORIDE 0.9% IV 1,000 ML 75 ML IV CONT (12:12)
--- NOTE | 2021-02-11 13:58 | ECG_ITS ---
Measurements Intervals [place] Rate: 51 P: 81 [place]: 160 QRS: -42 QRSD: 93 T: 46 QT: 458 QTc: 423 Interpretive Statements SINUS BRADYCARDIA LEFT AXIS DEVIATION BORDERLINE R WAVE PROGRESSION, ANTERIOR LEADS BORDERLINE ST-T WAVE ABNORMALITY- ANT/HIGH LAT LEADS BASELINE ARTIFACT- V2 BORDERLINE ECG Electronically Signed On 02-11-2021 17:03:34 LAUNDRY PRESS OPERATOR by Mainor Salinas D.O.
--- NOTE | 2021-02-11 14:14 | PM.DS ---
DS: Admitting Diagnosis Discharge Date 02/11/21 Admitting Diagnosis (1) Acute kidney injury: Code(s): N17.9 - Acute kidney failure, unspecified Status: Acute Assessment and Plan: Most likely due to dehydration. He will receive IV fluid rehydration overnight and his I/O will be monitored closely. Nephrotoxic agents will be avoided. Repeat renal function in a.m., if no improvement a further workup can be pursued. (2) Hyponatremia: Code(s): E87.1 - Hypo-osmolality and hyponatremia Status: Acute Assessment and Plan: Sodium is 131 when corrected for glucose and that is right around where he typically sits. (3) Bradycardia: Code(s): R00.1 - Bradycardia, unspecified Status: Acute Assessment and Plan: He does not seem to be terribly symptomatic with this though he will be monitored on telemetry to rule out sinus pauses. Continue beta-nahed with parameters. (4) QT prolongation: Code(s): R94.31 - Abnormal electrocardiogram [ECG] [EKG] Status: Acute Assessment and Plan: QT was 512 though QTc is 446. He apparently was taking Zofran at home and that will be discontinued. Continue to monitor on telemetry. Will repeat EKG in a.m. (5) Generalized weakness: Code(s): R53.1 - Weakness Status: Acute Assessment and Plan: Secondary to a combination of the above. Initiate fall precautions. Monitor orthostatic vital signs. PT/OT consulted. (6) Type 2 diabetes mellitus with hyperglycemia: Code(s): E11.65 - Type 2 diabetes mellitus with hyperglycemia Status: Acute Assessment and Plan: Random glucose today was over 400. Initiate sliding scale insulin, Accu-Cheks, and hypoglycemic protocol. Check hemoglobin A1c. (7) Chronic anemia: Code(s): D64.9 - Anemia, unspecified Status: Acute Assessment and Plan: Hemoglobin and hematocrit are stable on review of previous labs. (8) Thrombocytopenia: Code(s): D69.6 - Thrombocytopenia, unspecified Status: Acute Assessment and Plan: This is a chronic finding for the patient and his platelets are stable. Likely related to underlying liver disease. (9) Hypertension: Code(s): I10 - Essential (primary) hypertension Status: Acute Assessment and Plan: Blood pressures were reviewed and they have been stable. We will monitor orthostatic vital signs and continue antihypertensives appropriate. (10) Falls: Code(s): W19.XXXA - Unspecified fall, initial encounter Status: Acute Assessment and Plan: Check orthostatic vital signs. Peripheral neuropathy may be playing some part. Monitor on telemetry to rule out dysrhythmia. Initiate fall precautions. PT/OT consulted. DS: Discharge Diagnosis Discharge Diagnosis (1) Falls: Code(s): W19.XXXA - Unspecified fall, initial encounter Status: Acute (2) Lumbar degenerative disc disease: Code(s): M51.36 - Other intervertebral disc degeneration, lumbar region Status: Acute (3) Diabetic peripheral neuropathy: Code(s): E11.42 - Type 2 diabetes mellitus with diabetic polyneuropathy Status: Acute (4) Hyponatremia: Code(s): E87.1 - Hypo-osmolality and hyponatremia Status: Acute (5) Generalized weakness: Code(s): R53.1 - Weakness Status: Acute (6) Acute kidney injury: Code(s): N17.9 - Acute kidney failure, unspecified Status: Acute (7) Thrombocytopenia: Code(s): D69.6 - Thrombocytopenia, unspecified Status: Acute (8) Chronic anemia: Code(s): D64.9 - Anemia, unspecified Status: Acute (9) Bradycardia: Code(s): R00.1 - Bradycardia, unspecified Status: Acute (10) Hypertension: Code(s): I10 - Essential (primary) hypertension Status: Acute (11) Acute dehydration: Code(s): E86.0 - Dehydration Status: Acute (12) QT prolongation: C
--- NOTE | 2021-02-11 15:10 | PM.PNCARD ---
Progress Note: A&P Assessment and Plan (1) Bradycardia: Code(s): R00.1 - Bradycardia, unspecified Status: Acute Assessment and Plan: EKG on hospital admission showing sinus bradycardia with a rate of 45 beats per minute. Subsequent EKGs also demonstrates sinus bradycardia. On telemetry he is in sinus bradycardia rate generally 40-55. He has had some pauses, longest pause noted to be 5.22 seconds. Digoxin and metoprolol have been held, and the in general his heart rate has been in the 60s to 70s now. EKG showed sinus bradycardia rate 51. Continue to hold metoprolol and digoxin Thyroid function and electrolytes o.k. Outpatient cafeteria monitor on discharge No indication for pacemaker at this time EKG today showed sinus bradycardia rate 51, left anterior hemiblock, poor R-wave progression, small U wave present, QTC 423 milliseconds, personally reviewed. 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 Patient would like to change cardiologists and will follow-up in our office. Overall improved. okay for discharge. (2) Falls: Code(s): W19.XXXA - Unspecified fall, initial encounter Status: Acute Assessment and Plan: He reports at least 5 recent falls. Unlikely that his falls are secondary to bradycardia but cannot be excluded. He describes dizziness and subsequent falling when he gets out of bed too fast - consistent with orthostasis. He was dehydrated on admission. At this point in time due to many recent falls, anticoagulation is not a safe option for him. Risks and benefits of discontinuing anticoagulation at this time were discussed with the patient and he is in agreement. Perhaps a/c can be resumed in the future when he is no longer falling frequently. (3) Acute kidney injury: Code(s): N17.9 - Acute kidney failure, unspecified Status: Acute Assessment and Plan: Improved with IV fluids. Management per primary service. (4) Hypertension: Code(s): I10 - Essential (primary) hypertension Status: Acute Assessment and Plan: BP above goal generally. He does describe some symptoms consistent with orthostasis, though. (5) QT prolongation: Code(s): R94.31 - Abnormal electrocardiogram [ECG] [EKG] Status: Acute Assessment and Plan: QT on presenting EKG 512, QTc 466 , now improved. Does take Zofran at home which has been stopped. Avoid other QT prolonging medications. Subjective Date/time seen: 02/11/21 15:10 Interval history: Follow-up for paroxysmal AFib, tachy-oseas syndrome, frequent falls. Heart rate on admission was 40-55 beats per minute. Pauses up to 5.2 seconds were noted. QT prolongation of 512 milliseconds seen as well. His metoprolol and digoxin were discontinued. His Eliquis was changed to aspirin because of his frequent falls as well. Also history of hypertension, hyperlipidemia, alcohol abuse, chronic narcotic use. Previously seen by [facility] Dr. Ellis in [place]. Date of service 02/11/2021: Recent orthostatics were and normal. Objective Data Vital Signs Vital Signs: Vital Signs - 24 hr 02/10/21 16:00 02/10/21 20:00 02/10/21 22:00 Temperature 96.2 F L 97.0 F L Pulse Rate 53 L 58 L 79 Respiratory Rate 16 18 Blood Pressure 147/74 H 128/81 Pulse Oximetry 99 98 02/11/21 00:00 02/11/21 04:00 02/11/21 06:00 Temperature 97.5 F L Pulse Rate 60 66 64 Respiratory Rate 21 H Blood Pressure 145/77 H Pulse Oximetry 100 02/11/21 08:00 02/11/21 12:00 02/11/21 14:00 Temperature Pulse Rate 76 77 64 Respiratory Rate Blood Pressure 122/77 Pulse Oximetry 02/11/21 14:01 02/11/21 14:02 02/11/21 14:03 Temperature 98.1 F Pulse Rate 64 64 64 Respiratory Rate 20 Blood Pressure 105/61 113/75 113/75 Pulse Oximetry 100 Intake/Output Intake/Output: Intake & Output 02/08/21 02/09/21 02/10/21 02/11/21 23:59 23
== END 2021-02-11 16:02 | disposition home or self-care (01) | DRG 683 ==
LOC: ANHED 13:27 → ANH3MEDSUR 16:20 → ANH3MED 20:46
PROVIDERS: Internal Medicine; Physician Assistant; Admitting Provider Internal Medicine; Emergency Provider Emergency Medicine; Visit Provider Hospitalist
DX: N17.9 Acute kidney failure, unspecified (principal); E87.1 Hypo-osmolality and hyponatremia; E86.0 Dehydration; R00.1 Bradycardia, unspecified; R94.31 Abnormal electrocardiogram [ECG] [EKG]; E11.65 Type 2 diabetes mellitus with hyperglycemia; D64.9 Anemia, unspecified; I10 Essential (primary) hypertension; D69.59 Other secondary thrombocytopenia; E11.42 Type 2 diabetes mellitus with diabetic polyneuropathy; K74.60 Unspecified cirrhosis of liver; I48.0 Paroxysmal atrial fibrillation; M51.36 Other intervertebral disc degeneration, lumbar region; M19.90 Unspecified osteoarthritis, unspecified site; G89.4 Chronic pain syndrome; F10.10 Alcohol abuse, uncomplicated; W19.XXXA Unspecified fall, initial encounter; Z90.49 Acquired absence of other specified parts of digestive tract; Z87.891 Personal history of nicotine dependence; Z86.19 Personal history of other infectious and parasitic diseases
CPT/HCPCS: 36415; 70450; 71046; 72170; 80053; 80162; 81001; 82010; 82550; 82948; 83036; 83735; 84100; 84439; 84443; 84480; 85025; 85027; 93005; 96361; 96374; 97110; 97116; 97161; 97165; 99285; A9270; G0378; J1815; J7030

== ENCOUNTER 2021-03-23 16:07 | Observation (INO) | payer MEDICARE, SELFPAY ==
[2021-03-23] VITALS (25 sets, daily range): BP systolic 91–156; BP diastolic 62–107; PULSE 80–117; RESP 9–31; TEMP 37.1–39.2; O2SAT 92–95
--- NOTE | ~2021-03-23 | CT_ITS ---
EXAMINATION: CT chest abdomen pelvis w con DATE: 03/23/2021 18:15 INDICATION: Fall TECHNIQUE: Computed tomography (CT) of the chest, abdomen, and pelvis was performed with 100 cc Omnip aque 350 intravenous contrast. Automated exposure control and iterative reconstruction technique were employed. Exam dose: 914.62 mGy-cm total exam DLP. COMPARISON: None FINDINGS: CHEST CT: There is minimal patchy infiltrate in the upper lobes and much more prominent infiltrate in the lower lobes, especially the superior segment left lower lobe and bilateral dependent basilar lower lobes. Differential diagnosis includes bilateral pneumonia as well as aspiration pneumonitis. Prominent calcified pulmonary granuloma in the posterior left costophrenic sulcus an calcified left h ilar nodes,, calcified splenic granulomas consistent with old granulomatous disease. Mild cardiomegaly. Coronary artery calcifications. No pericardial or pleural effusion. No thoracic ao rtic aneurysm or dissection. No hilar or mediastinal mass lesion or lymphadenopathy. Right shoulder arthroplasty. Status post anterior cervical spine fusion and bone graft from C3 through C7. Healing lateral left third and seventh rib fractures. Subtle nondisplaced recent lateral left eighth, ninth and 10th rib fractures are suggested. ABDOMEN/PELVIS CT: There is pneumobilia, likely secondary to cholecystectomy. No hepatic space-occupying mass lesion is detected. Spleen measures 13.2 cm length, within upper limi ts of normal. No pancreatic mass lesion or ductal dilatation Normal morphology of the adrenal glands. Occasional small probable bilateral renal cysts. No urinary tract calculus or hydroureteronephrosis. The urinary bladder is unremarkable. Moderate prostatomegaly and mild prostate calcification. There is atherosclerotic calcification of the abdominal aorta but no aneurysm. No intraperitoneal or retroperitoneal or pelvic mass lesion or adenopathy or ascites. Normal appendix. There are numerous fluid containing small bowel segments with air-fluid levels invol ving duodenum, jejunum and ileum, measuring up to 3.5 cm diameter.. There is some fecal-like content within nondilated distal ileum. Differential diagnosis includes enteritis or adynamic ileus or mild p artial small bowel obstruction. No intraperitoneal free air. Mild anterior wedge compression fracture deformities of uncertain age of T11, T12, L2. Multilevel degenerative disc disease of the lumbar spine, most severe at L2-3 and L4-5. Patchy sclerosis of the sacrum is noted bilaterally, consistent with sacral insufficiency fractures. Healing fracture of the right pubic symphysis. Compression screw and intramedullary isaiah of proximal left femur. IMPRESSION: Bilateral pulmonary infiltrates, minimally upper lobes, more prominent in the lower lobe s; consider pneumonia, aspiration pneumonitis Mild cardiomegaly Mild small bowel dilatation and numerous small bowel air-fluid levels, fecal content of distal small bowel. Consider enteritis, adynamic ileus, mild partial small bowel obstruction Pneumobilia secondary to cholecystectomy Right shoulder arthroplasty Status post anterior cervical spine fusion and bone graft from C3 to C7 Healing lateral left third and seventh rib fractures and suggestion of subtle nondisplaced recent lef t lateral eighth, ninth and 10th rib fractures Mild anterior wedge compression fractures of uncertain age of T11, T12 and L2 Chronic sacral insufficiency fractures, subacute or old fracture of right pubic symphysis Reviewed, dictated and finalized at [facility]. Reviewed, dictated and finalized at location [facility]. ETING MGR IMPRESSION: Bilateral pulmonary infiltrates, minimally upper lobes, more promi nent in the lowe
--- NOTE | ~2021-03-23 | CT_ITS ---
EXAMINATION: CT cervical spine wo con DATE: 03/23/2021 18:16 INDICATION: Fall, neck injury TECHNIQUE: Computed tomography (CT) of the cervical spine was performed without intravenous contrast. Automated exposure control and iterative reconstruction technique were employed. Exam dose: 348.01 mGy-cm total exam DLP. COMPARISON: None FINDINGS: Status post anterior surgical fusion and anterior column bone grafts at C3-C7. There is straightening of the cervical spine. C1 and C2 are normally aligned and the odontoid process is intact. No fracture or dislocation or lock ed facet or prevertebral soft tissue swelling is evident. There is severe degenerative disc disease at C7-T1, T1-2 and T2-3, moderately severe degenerative dis c disease at included T3-4. There is fusion of the apophyseal joints bilaterally at C3-5 and degenerative change at the remaining apophyseal joints. IMPRESSION: Status post anterior surgical fusion and anterior column bone graft from C3-C7 Straightening; no fracture or dislocation or locked facet Extensive degenerative changes of the cervical and upper thoracic spine Reviewed, dictated and finalized at [facility]. Reviewed, dictated and finalized at [facility]. READER IMPRESSION: Status post anterior surgical fusion and anterior column bone roberto t from C3-C7 Straightening; no fracture or dislocation or locked facet Extensive degenerative changes of the cervical and upper thoracic spine
--- NOTE | ~2021-03-23 | CT_ITS ---
EXAMINATION: CT brain wo con DATE: 03/23/2021 18:16 INDICATION: Fall. Altered mental status. TECHNIQUE: Computed tomography (CT) of the head was performed without intravenous contrast. The mA wa s adjusted according to patient size. Iterative reconstruction technique was employed. Exam dose: 60 5.33 mGy-cm total exam DLP. COMPARISON: 02/08/2021 CT brain FINDINGS: There is moderate cerebral and cerebellar volume loss. No intracranial mass lesion or hemorrhage or cerebrovascular accident is detected. No midline shift o r mass effect effect. Bilateral carotid siphon internal carotid artery calcifications. There is nonspecific diminished atte nuation cerebral white matter, likely due to chronic small vessel ischemic changes. No subdural or epidural hematoma is detected. Approximately 7 mm osteoma of the left frontal sinus. The included paranasal sinuses and mastoid air cells are normally developed and aerated. No skull fracture or bone destruction is detected. IMPRESSION: No skull fracture or acute intracranial finding Reviewed, dictated and finalized at [facility]. Reviewed, dictated and finalized at location [facility]. RAT
--- NOTE | 2021-03-23 16:26 | ECG_ITS ---
Measurements Intervals [place] Rate: 86 P: 52 FL: 169 QRS: -27 QRSD: 79 T: 67 QT: 353 QTc: 424 Interpretive Statements SINUS RHYTHM BASELINE ARTIFACT- I, III, AVL NORMAL ECG Electronically Signed On 03-25-2021 7:49:53 [employer] ARTIST by Mainor Salinas D.O.
[2021-03-23] MEDS: NALOXONE HCL INJ 2 MG/2 ML AMP (17:13)
[2021-03-23 17:24] LABS: Basophils Percent Auto 0.3 % (0.2-1.2); Eosinophils Percent Auto 0.1 % (0-4.4); Hematocrit 34.2 % (42.0-52.0); Hemoglobin 10.8 g/dL (14.0-18.0); Immature Granulocyte Absolute 0.04 K/mm3 (0.00-0.031); Immature Granulocyte Percent A 0.5 % (0-0.5); Lymphocytes Absolute Auto 0.58 K/mm3 (0.9-3.2); Lymphocytes Percent Auto 7.3 % (18.3-44.2); Mean Corpuscular HGB Conc 31.6 g/dl (32-36); Mean Corpuscular Hemoglobin 31.3 pg (26-34); Mean Corpuscular Volume 99.1 fl (80-100); Mean Platelet Volume 8.8 fl (7.4-10.4); Monocytes Absolute Auto 0.4 K/mm3 (0.1-0.6); Monocytes Percent Auto 4.7 % (2.6-8.5); Neutrophils Absolute Auto 6.9 K/mm3 (1.3-6.7); Neutrophils Percent Auto 87.1 % (45.5-73.1); Platelet Count Result 91 k/mm3 (150-375); Red Blood Count 3.45 M/mm3 (4.6-6.20); Red Cell Distribution Width 15.3 % (11.5-14.5); White Blood Count 7.9 K/mm3 (4.5-10.0)
[2021-03-23 17:29] LABS: Add Urine Microscopic? YES; Appearance Urine Clear (Clear); Bilirubin Urine Negative (Negative); Blood Urine 1+ (Negative); Color Urine Yellow (Yellow); Glucose Urine UA 3+ mg/dL (Negative); Ketones Urine Negative (Negative); Leukocyte Esterase Ur Negative LEU/UL (Negative); Nitrate Urine Negative (Negative); Protein Urine 1+ mg/dL (Negative); RBC Urine 0-2 /hpf (0-2); Specific Grav Ur 1.017 (1.001-1.035); Urobilinogen Urine Negative mg/dL (<2.0)
[2021-03-23 17:44] LABS: Alanine Aminotransferase 27 U/L (4-50); Albumin Level 3.6 g/dL (3.5-5.1); Alkaline Phosphatase 75 U/L (38-126); Anion Gap 5 mmol/L (8-16); Aspartate Amino Transferase 42 U/L (17-59); Bilirubin,Total 0.8 mg/dL (0.2-1.3); Blood Urea Nitrogen 18 mg/dL (9-20); Calcium 8.7 mg/dL (8.4-10.2); Carbon Dioxide 29 mmol/L (22-30); Chloride 105 mmol/L (98-107); Estimated CRCL calculation 47 ml/min; Estimated Glomerular Filt Rate 60; Glucose 148 mg/dL (65-110); Potassium 4.8 mmol/L (3.4-5.0); Sodium 139 mmol/L (137-145)
[2021-03-23 17:45] LABS: Acetaminophen < 10 ug/mL (10-30); Ethanol < 10 mg/dL (<10); Salicylate < 1.0 mg/dL (2-20)
[2021-03-23 17:57] LABS: Amphetamine Screen Urine Negative (Negative); Barbiturate Screen Urine Negative (Negative); Benzodiazepines Screen Urine Negative (Negative); Cannabinoid Screen Urine Positive (Negative); Cocaine Screen Urine Negative (Negative); Methadone Screen Urine Negative (Negative); Opiate Screen Urine Positive (Negative); Phencyclidine Screen Urine Negative (Negative)
[2021-03-23 20:12] LABS: SARS-CoV-2 RNA PCR Negative
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
--- NOTE | 2021-03-23 20:27 | PC.NURSE ---
1615 PT BROUGHT TO ED AFTER GRANDDAUGHTER CALLED EMS FOR PT NOT ACTING RIGHT EMS REPORTS PT SITTING UP ROCKING BACK AND FORTH AND THOUGHT PT MAY HAVE TAKEN TOO MANY PAIN MEDICATIONS. PT HAS BRUISING IN VARIOUS STAGES TO BUE AND BLE, LARGE ECCHYMOTIC AREA TO LUQ AND ECCYMOSIS ABOVE RIGHT EYE. PT A/O BUT SLOW TO RESPOND
[2021-03-23] MEDS: SODIUM CHLORIDE 0.9% IV 1,000 ML 999 ML IV CONT (21:38)
[2021-03-23 22:29] LABS: Lactic Acid Reflex 1.2 mmol/L (0.7-2.1)
[2021-03-23] MEDS: AMPICILLIN SULB 3 GM/NS 100 ML 3 GM/100 ML VIAL IVPB (23:53)
[2021-03-24] VITALS (7 sets, daily range): BP systolic 108–158; BP diastolic 61–81; PULSE 63–84; RESP 12–18; TEMP 36.4–37.3; O2SAT 93–99; BMI 27.1
[2021-03-24] MEDS: SODIUM CHLORIDE 0.9% IV 1,000 ML 125 ML IV CONT ×2 (01:03→09:53)
--- NOTE | 2021-03-24 03:46 | ADMGEN ---
This patient, Michael Abdullahi, was admitted to [facility] Surg Room 324-02. Patient/family oriented to hospital policies and general routines including ID bracelet, bed and alarms, visiting hours, pain management, procedures, bathroom and other care routines, personal items, smoking policy, room service/diet, and visiting hours. Information on how to activate the Rapid Response Team has been discussed. Patient/Family are encouraged to report perceived risks to care and to ask questions if they do not understand what they are told or what they should do.
[2021-03-24] MEDS: AMPICILLIN SULB 3 GM/NS 100 ML 3 GM/100 ML VIAL IVPB ×2 (06:04→10:01)
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
[2021-03-24 11:08] LABS: Basophils Percent Auto 0.2 % (0.2-1.2); Eosinophils Percent Auto 0.4 % (0-4.4); Hematocrit 32.2 % (42.0-52.0); Immature Granulocyte Absolute 0.03 K/mm3 (0.00-0.031); Immature Granulocyte Percent A 0.4 % (0-0.5); Lymphocytes Absolute Auto 1.07 K/mm3 (0.9-3.2); Lymphocytes Percent Auto 12.6 % (18.3-44.2); Mean Corpuscular HGB Conc 31.1 g/dl (32-36); Mean Corpuscular Hemoglobin 30.7 pg (26-34); Mean Corpuscular Volume 98.8 fl (80-100); Mean Platelet Volume 9.2 fl (7.4-10.4); Monocytes Absolute Auto 0.4 K/mm3 (0.1-0.6); Monocytes Percent Auto 4.8 % (2.6-8.5); Neutrophils Absolute Auto 6.9 K/mm3 (1.3-6.7); Neutrophils Percent Auto 81.6 % (45.5-73.1); Platelet Count Result 83 k/mm3 (150-375); Red Blood Count 3.26 M/mm3 (4.6-6.20); Red Cell Distribution Width 15.2 % (11.5-14.5); White Blood Count 8.5 K/mm3 (4.5-10.0)
[2021-03-24 11:22] LABS: Alanine Aminotransferase 32 U/L (4-50); Alkaline Phosphatase 89 U/L (38-126); Anion Gap 3 mmol/L (8-16); Aspartate Amino Transferase 44 U/L (17-59); Bilirubin,Total 1.1 mg/dL (0.2-1.3); Blood Urea Nitrogen 12 mg/dL (9-20); Calcium 8.2 mg/dL (8.4-10.2); Carbon Dioxide 25 mmol/L (22-30); Chloride 108 mmol/L (98-107); Estimated CRCL calculation 52 ml/min; Estimated Glomerular Filt Rate > 60; Glucose 112 mg/dL (65-110); Potassium 4.2 mmol/L (3.4-5.0); Sodium 136 mmol/L (137-145)
[2021-03-24 11:36] LABS: Erythrocyte Sedimentation Rate 70 mm/hr (0-20)
[2021-03-24 12:59] LABS: Glucose Point of Care 111 mg/dl (65-105)
== END 2021-03-24 16:30 | disposition home health service (06) ==
LOC: ANHED 21:18 → ANH3MEDSUR 03-24 10:29
PROVIDERS: Physician Assistant; Admitting Provider Internal Medicine; Emergency Provider Emergency Medicine; Visit Provider Internal Medicine
DX: J69.0 Pneumonitis due to inhalation of food and vomit (principal); E11.65 Type 2 diabetes mellitus with hyperglycemia; W19.XXXA Unspecified fall, initial encounter; F11.20 Opioid dependence, uncomplicated; I11.9 Hypertensive heart disease without heart failure; G89.4 Chronic pain syndrome; E11.40 Type 2 diabetes mellitus with diabetic neuropathy, unspecified; B19.20 Unspecified viral hepatitis C without hepatic coma; I27.20 Pulmonary hypertension, unspecified; D64.9 Anemia, unspecified; K74.60 Unspecified cirrhosis of liver; F12.90 Cannabis use, unspecified, uncomplicated; Z79.82 Long term (current) use of aspirin; Z98.1 Arthrodesis status; Z79.4 Long term (current) use of insulin; Z87.891 Personal history of nicotine dependence; Z87.81 Personal history of (healed) traumatic fracture; Z20.822 Contact with and (suspected) exposure to COVID-19
CPT/HCPCS: 36415; 70450; 71260; 72125; 74177; 80053; 80307; 81001; 82948; 83605; 85025; 85652; 87040; 87804; 93005; 96361; 96365; 96366; 96375; 99285; C9803; G0378; J0295; J2310; J7030; Q9967; U0003; U0005

== ENCOUNTER 2021-04-07 01:59 | Day surgery (SDC) | payer MEDICARE, SELFPAY ==
--- NOTE | 2021-04-06 14:08 | PC.NURSE ---
This RN called patient x2 for pre-call 1400 and 1406, no answer either time and voicemail full.
--- NOTE | 2021-04-06 17:39 | PC.NURSE ---
This RN called x2 1500 and 1739, no answer. VM states this is Salvatore which is what the patient goes by, no VM left, VM full.
[2021-04-07] VITALS (11 sets, daily range): BP systolic 116–178; BP diastolic 73–99; PULSE 48–76; RESP 11–20; TEMP 36.4–36.8; O2SAT 97–100; BMI 20.4
--- NOTE | ~2021-04-07 | XR_ITS ---
EXAMINATION: XR chest 1V portable EXAM DATE: 04/07/2021 14:12 INDICATION: Pacemaker insertion. TECHNIQUE: Portable AP frontal chest x-ray was obtained. Comparison is made to prior examination from 02/08/2021. FINDINGS: Interval insertion of a dual-lead pacemaker/AICD device. No confluent consolidation, pneumo thorax or pleural effusion suspected. Right shoulder replacement. Cervical fusion hardware. There i s old left rib fracture laterally. There is aortic arteriosclerosis. IMPRESSION: No acute cardiopulmonary findings. Reviewed, dictated and finalized at location B. ERY WORKER
--- NOTE | 2021-04-07 08:30 | ECG_ITS ---
Measurements Intervals [place] Rate: 47 P: 71 [place]: 176 QRS: -24 QRSD: 87 T: 40 QT: 482 QTc: 427 Interpretive Statements SINUS BRADYCARDIA ATRIAL PREMATURE COMPLEX DELAYED PRECORDIAL R/S TRANSITION VOLTAGE CRITERIA FOR LVH BASELINE ARTIFACT- I, II, III, AVR, AVL, AVF ABNORMAL ECG Electronically Signed On 04-07-2021 10:40:55 [employer]ST MAKER by Mainor Salinas D.O.
[2021-04-07 09:23] LABS: Basophils Percent Auto 0.1 % (0.2-1.2); Eosinophils Percent Auto 0.2 % (0-4.4); Hematocrit 36.1 % (42.0-52.0); Hemoglobin 11.9 g/dL (14.0-18.0); Immature Granulocyte Absolute 0.07 K/mm3 (0.00-0.031); Immature Granulocyte Percent A 0.7 % (0-0.5); Lymphocytes Absolute Auto 1.33 K/mm3 (0.9-3.2); Lymphocytes Percent Auto 14.2 % (18.3-44.2); Mean Corpuscular Hemoglobin 31.3 pg (26-34); Mean Platelet Volume 9.9 fl (7.4-10.4); Monocytes Absolute Auto 0.7 K/mm3 (0.1-0.6); Monocytes Percent Auto 7.7 % (2.6-8.5); Neutrophils Absolute Auto 7.2 K/mm3 (1.3-6.7); Neutrophils Percent Auto 77.1 % (45.5-73.1); Platelet Count Result 135 k/mm3 (150-375); Red Cell Distribution Width 15.1 % (11.5-14.5); White Blood Count 9.3 K/mm3 (4.5-10.0)
[2021-04-07 09:32] LABS: Anion Gap 11 mmol/L (8-16); Blood Urea Nitrogen 34 mg/dL (9-20); Calcium 8.4 mg/dL (8.4-10.2); Carbon Dioxide 23 mmol/L (22-30); Chloride 95 mmol/L (98-107); Estimated Glomerular Filt Rate 38; Glucose 337 mg/dL (65-110); Potassium 4.8 mmol/L (3.4-5.0); Sodium 129 mmol/L (137-145)
[2021-04-07] MEDS: SODIUM CHLORIDE 0.9% IV 500 ML 100 ML IV CONT (10:00)
[2021-04-07 10:15] LABS: Prothrombin Time 12.9 Seconds (11.1-14.7)
--- NOTE | 2021-04-07 10:46 | P.HPUP_ITS ---
History and Physical Update Update Date/Time: 04/07/21 10:46 Michael Abdullahi a 70-year-old male with sick sinus syndrome and symptomatic bradycardia. He has had dizziness and falls. Monitoring has shown sinus pauses of up to 6.1 seconds and persistent bradycardia even after his digoxin and metoprolol have been held. He is here for implantation of a permanent dual- chamber Biotronik pacemaker. He is feeling well today. History and Physical has been reviewed, including an updated exam of the patient. There are NO changes in the patient's condition. Risks, benefits, and alternatives have been discussed and questions answered. Patient agrees to proceed with procedure.
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
--- NOTE | 2021-04-07 11:25 | W.PM.PROC2 ---
Procedure Note - Detailed Date of Procedure 04/07/21 Pre-op Diagnosis sick sinus syndrome , symptomatic. Post-op Diagnosis same Procedure Performed PROCEDURE PERFORMED: Conscious sedation Venogram Placement of a permanent dual-chamber pacemaker Surgeon Evi Chance MD Anesthesia local (with conscious sedation) Indications Michael Abdullahi a 70-year-old male with sick sinus syndrome and symptomatic bradycardia. He has had dizziness and falls. Monitoring has shown sinus pauses of up to 6.1 seconds and persistent bradycardia even after his digoxin and metoprolol have been held. He is here for implantation of a permanent dual-chamber Biotronik pacemaker. He is feeling well today. The patient also has history of paroxysmal atrial fibrillation. His anticoagulation was discontinued because of his multiple falls. His also has a history of orthostasis, hypertension, CKD stage 3 secondary to diabetes, chronic hepatitis-C with cirrhosis, pancreatitis and chronic musculoskeletal pain on multiple narcotics. of note, the patient was told to discontinue his nifedipine on his last office visit on 03/22/2021 because of low blood pressure. He stopped his lisinopril instead. He does smoke marijuana but denies other drug use. He has a history of a right clavicular fracture so even though he is left handed were planning a left-sided implant. I had requested he trim his price to reduce the risk of infection but the patient declined. Findings Uneventful implant Description of Procedure SITE: Left prepectoral area MEDICATIONS GIVEN IN JACK FRAME TENDER: Ancef 1 gram IV piggyback CONSCIOUS SEDATION: Assessment: The patient has no history of anesthesia problems. The patient's oropharynx is clear. The patient was deemed to be a good candidate for conscious sedation. The patient had continuous hemodynamic monitoring during the procedure. Start time: 12:08 p.m. Completion time: 13 13 Total conscious sedation time: 66 minutes Medications: Versed 3 mg and fentanyl 50 mcg IV push Trained observer: Mallika Duron RN and Jaime Suazo RN Outcome: The patient tolerated the procedure well with no complications. PROCEDURE: After informed consent , the patient was brought to the laboratory mechanical technician and the left prepectoral area was prepped and draped in usual fashion . The patient received preop antibiotic and conscious sedation . The left prepectoral area was anesthetized with lidocaine . A venogram was performed showing the course of the left subclavian vein,which was patent. Next a skin incision was made and carried down to the prepectoral fascia. Hemostasis was obtained using electrocautery . The pacer pocket was formed. The left subclavian vein was easily accessed with the micropuncture technique, and a J-tipped guide wire was passed into the inferior vena cava under fluoroscopic guidance. The needle was withdrawn. A 2nd wire was introduced in an identical fashion. the wires were pulled into the pacing pocket. A 6 Kiswahili safety sheath was passed over the lateral wire, the wire withdrawn, and the right ventricular lead was passed into the inferior vena cava under fluoroscopic guidance . The lead was then prolapsed through the tricuspid valve and advanced into the right ventricular apex. When suitable sensing and pacing thresholds were obtained, it was screwed into place. No extra cardiac stimulation was obtained using 10 volts. The sheath was withdrawn. Next, another 6 Kiswahili safety sheath was passed over the more medial wire, the wire withdrawn, and the right atrial lead was passed into the inferior vena cava under fluoroscopic guidance. Right atrial lead was then pulled back to the level of the right atrium and manipulated into the right atrial appendage . When suitable sensing and pacing thresholds were obtained , it was screwed into place . No extra cardiac stimulation was obtained using 10 volts. The sheath was withdrawn. Bot
--- NOTE | 2021-04-07 13:20 | ECG_ITS ---
Measurements Intervals [place] Rate: 66 P: 219 RI: 195 QRS: -31 QRSD: 94 T: 29 QT: 430 QTc: 451 Interpretive Statements ELECTRONIC ATRIAL PACEMAKER BASELINE ARTIFACT- I, II, III, AVR, AVL, AVF, V1 ATYPICAL ECG Electronically Signed On 04-07-2021 13:56:44 HISTOTECHNICIAN by Mainor Salinas D.O.
--- NOTE | 2021-04-07 13:23 | PM.OP ---
Procedure Note - Brief Procedure Note - Brief Date of procedure: 04/07/21 Pre-op diagnosis: sic sinus syndrome Symptomatic sick sinus syndrome, sinus pauses, dizziness and falls. Post-op diagnosis: same Procedure performed: Uneventful implantation of a permanent dual-chamber Biotronik pacemaker Description of procedure: Uneventful implantation of a permanent dual-chamber Biotronik pacemaker Anesthesia: local ( with conscious sedation) Surgeon: Evi Chance MD Complications: No immediate complications Condition: stable Disposition: observation
[2021-04-07] MEDS: oxyCODONE HCL (*CRX) 5 MG TAB IR 60 MG PO (15:09)
== END 2021-04-07 19:25 | disposition home or self-care (01) ==
PROVIDERS: Visit Provider Internal Medicine Cardiovascular Disease
PROC: 0JH606Z Insertion of Pacemaker, Dual Chamber into Chest Subcutaneous Tissue and Fascia, Open Approach (ICD-10-PCS; CPT 33208; principal; 2021-04-07 10:00)
DX: I49.5 Sick sinus syndrome (principal); I49.1 Atrial premature depolarization; I48.0 Paroxysmal atrial fibrillation; E11.22 Type 2 diabetes mellitus with diabetic chronic kidney disease; I12.9 Hypertensive chronic kidney disease with stage 1 through stage 4 chronic kidney disease, or unspecified chronic kidney disease; N18.30 Chronic kidney disease, stage 3 unspecified; R42 Dizziness and giddiness; I48.91 Unspecified atrial fibrillation; K74.60 Unspecified cirrhosis of liver; B19.20 Unspecified viral hepatitis C without hepatic coma; K21.9 Gastro-esophageal reflux disease without esophagitis; G47.33 Obstructive sleep apnea (adult) (pediatric); Z87.891 Personal history of nicotine dependence
CPT/HCPCS: 33208; 36415; 71045; 80048; 85025; 85610; 93005; A9270; C1779; C1785; J0690; J2250; J3010; J7040

== ENCOUNTER 2021-04-14 10:47 | Outpatient (CLI) | payer MEDICARE, SELFPAY ==
--- NOTE | ~2021-04-14 | XR_ITS ---
XR chest 2V DATE: 04/14/2021 11:05 INDICATION: Cardiac pacemaker TECHNIQUE: PA and lateral views COMPARISON: April 07, 2021 portable AP chest FINDINGS: Left-sided transvenous pacemaker device with leads overlying right atrium and right ventric le. Normal heart size. Aortic arch calcification. No hilar or mediastinal enlargement. Bilateral hyperinflation. No pulmonary infiltrate or consolidation, pleural effusion or pulmonary vas cular congestion or pneumothorax. There is apparent interval resolution of left lower lobe infiltrate s since 03/23/2021. Status post anterior surgical fusion of the cervical spine. Right humeral head prosthesis. Diffuse osteopenia. IMPRESSION: Bilateral hyperinflation, suggesting COPD Left dual-lead pacemaker device No active cardiopulmonary disease Aortic calcification Osteopenia Humeral head replacement on the right Anterior cervical spine surgical fusion Reviewed, dictated and finalized at location B. E PLANER OPERATOR HELPER
== END 2021-04-14 10:48 | disposition home or self-care (01) ==
LOC: ANHIMG 10:53
PROVIDERS: Visit Provider Internal Medicine Cardiovascular Disease
DX: Z95.0 Presence of cardiac pacemaker (principal); R91.8 Other nonspecific abnormal finding of lung field; I70.0 Atherosclerosis of aorta; M85.89 Other specified disorders of bone density and structure, multiple sites; Z98.1 Arthrodesis status
CPT/HCPCS: 71046

== ENCOUNTER 2021-07-12 08:06 | Observation (INO) | payer MEDICARE, SELFPAY ==
[2021-07-12] VITALS (13 sets, daily range): BP systolic 136–172; BP diastolic 69–97; PULSE 65–118; RESP 13–17; TEMP 36.6–37; O2SAT 90–98
--- NOTE | ~2021-07-12 | CT_ITS ---
EXAMINATION: CT chest abdomen pelvis w con DATE: 07/12/2021 09:49 INDICATION: Right chest pain. Chest and abdominal injury. TECHNIQUE: Computed tomography (CT) of the chest, abdomen, and pelvis was performed with 100 mL Omnip aque 300 intravenous contrast. Automated exposure control and iterative reconstruction technique were employed. The dose-length product was 827.39 mGy-cm. COMPARISON: CT chest, abdomen, and pelvis 03/23/2021, CT abdomen and pelvis 04/03/19 FINDINGS: CHEST CT: There is dependent atelectasis in the lungs. A calcified left lung nodule and calcified left hilar ly mph nodes are consistent with old granulomatous disease. There are patchy groundglass opacities in ri ght upper lobe, right middle lobe, and right lower lobe. There is mucous plugging in left lower lobe and lingula. No pleural effusion. The heart size is normal. There are coronary artery calcifications. No pericardial effusion. There is a left chest wall pacer with leads in the right atrium and right v entricle. There is a right shoulder arthroplasty. There are old healed bilateral rib fractures. There are acute fractures of right fourth, fifth, and sixth ribs. There is a healing right 11th rib fractu re with callus formation, new from 03/23/21. There is a healing right 12th rib fracture, new from 03/23. There are changes of anterior fusion procedure in cervical spine. There is severe thoracic spond ylosis. There is a chronic compression fracture of T11. There is mild chronic anterior wedging of T12 vertebral body. ABDOMEN/PELVIS CT: The liver demonstrates surface nodularity, consistent with cirrhosis. There is a 1.5 cm low-attenuati on mass in peripheral segment IVb of the liver, new from 04/03/19. Pneumobilia is noted, likely seconda ry to sphincterotomy. The gallbladder is absent. Calcifications in the spleen are consistent with old granulomatous disease. Calcifications in the pancreas are consistent with chronic pancreatitis. The adrenal glands are normal. There is cortical thinning of the kidneys. There is diverticulosis of the colon without evidence of diverticulitis. There are no dilated loops of bowel. The appendix is normal . There are no pathologically enlarged lymph nodes. There is no free intraperitoneal fluid. There is internal fixation of left femur. There are healing insufficiency fractures of the sacral ala bilatera lly. There is severe lumbar spondylosis. There is a chronic compression fracture of L2. IMPRESSION: 1. Acute and subacute right rib fractures. 2. Patchy groundglass opacities in right lung, consistent with pneumonia versus mild pulmonary edema. 3. Cirrhosis of the liver. 4. 1.5 cm liver mass, which may be benign or malignant. Abdomen MRI without and with contrast is [place] mmended. Reviewed, dictated and finalized at location B. IMPRESSION: 1. Acute and subacute right rib fractures. 2. Patchy groundglass opacities in right lung, consistent with pneumonia versus mild pulmonary edema. 3. Cirrhosis of the liver. 4. 1.5 cm liver mass, which may be benign or malignant. Abdomen MRI without and with contrast is recommended.
--- NOTE | ~2021-07-12 | US_ITS ---
EXAMINATION: US carotid duplex BI DATE: 07/12/2021 18:49 INDICATION: Cerebral atherosclerosis. TECHNIQUE: Grayscale, color Doppler, and pulsed Doppler images of the cervical carotid arteries were obtained. The degree of vessel stenosis is placed in one of the following categories: normal, <50%, 5 0-69%, >=70% but less than near-occlusion, near-occlusion, or total occlusion. Note that percent sten osis relative to normal distal artery lumen diameter is indirectly measured from velocity measurement s as described by David, et al. Radiology 2003; 229:340-346. COMPARISON: None. FINDINGS: RIGHT: The right common carotid artery (CCA) peak systolic velocity (PSV) is 74 cm/s. The right internal car otid artery (ICA) PSV is 68 cm/s. The right ICA end-diastolic velocity (EDV) is 22 cm/s. The right IC A/CCA PSV ratio is 0.9. Grayscale and color Doppler images yield an estimate of <50% diameter reducti on from plaque in the ICA. The external carotid artery (ECA) PSV is 81 cm/s. There is antegrade flow in the right vertebral artery. LEFT: The left CCA PSV is 92 cm/s. The left ICA PSV is 63 cm/s. The left ICA EDV is 21 cm/s. The left ICA/C CA PSV ratio is 0.7. Grayscale and color Doppler images yield an estimate of <50% diameter reduction from plaque in the ICA. The ECA PSV is 55 cm/s. There is antegrade flow in the left vertebral artery. IMPRESSION: 1. <50% stenosis in the right internal carotid artery. 2. <50% stenosis in the left internal carotid artery. Reviewed, dictated and finalized at location A.
--- NOTE | ~2021-07-12 | CT_ITS ---
EXAMINATION: CT brain wo con DATE: 07/12/2021 09:49 INDICATION: Status post fall. Bruising. TECHNIQUE: Computed tomography (CT) of the head was performed without intravenous contrast. The dose- length product was 605.33 mGy-cm. Automated exposure control and iterative reconstruction technique w ere employed. COMPARISON: CT dated 03/23/2021 FINDINGS: No ventriculomegaly or midline shift. There is intracranial atherosclerosis. Generalized at rophy. There are scattered mild periventricular and subcortical white matter changes, most likely rel ated to small vessel ischemic disease (microangiopathy). Paranasal sinuses and mastoids are pneumatiz ed. There is a small osteoma in the left frontal sinus. No depressed skull fractures. Midline sagitta l images demonstrate a normal corpus callosum and craniovertebral junction. IMPRESSION: 1. No acute intracranial abnormality. 2: Chronic age-related findings. Reviewed, dictated and finalized at location A.
--- NOTE | ~2021-07-12 | CT_ITS ---
EXAMINATION: CT cervical spine wo con DATE: 07/12/2021 09:49 INDICATION: Status post fall. Neck pain. TECHNIQUE: Computed tomography (CT) of the cervical spine was performed without intravenous contrast. The dose-length product was 343 mGy-cm. Automated exposure control and iterative reconstruction tech nique were employed. COMPARISON: CT dated 03/23/2021 FINDINGS: There are surgical changes consistent with anterior fusion at C3-C7. There is anterior colu mn bone graft with fractures of the graft which are unchanged from prior examination. There is straig htening of cervical lordosis. There is moderate spondylosis at the cervicothoracic junction. Odontoid process within normal limits. Craniovertebral junction within normal limits. Lung apices are normal. There is carotid atherosclerosis. No acute fracture or traumatic malalignment. IMPRESSION: 1. No acute fracture. Reviewed, dictated and finalized at location A. IMPRESSION: 1. No acute fracture.
--- NOTE | ~2021-07-12 | XR_ITS ---
EXAMINATION: XR ribs RT 2V w CXR 2V DATE: 07/12/2021 08:41 INDICATION: Right rib pain post fall TECHNIQUE: AP and lateral views of the chest and 3 views of the right ribs were obtained. COMPARISON: Chest radiograph dated 04/14/[address] dated 03/23/2021 FINDINGS: Again seen are old anterior right fifth-eighth rib fractures and old fractures of the lateral left th ird and anterior left seventh and eighth rib fractures.. Additional nondisplaced old rib fractures ev ident on prior CT and indiscernible on the current radiographs. There are new mildly displaced fractu res of the posterolateral right third-fifth ribs. Calcified left lower lobe nodule and calcified medi astinal lymph nodes consistent with old granulomatous disease. No other airspace opacities, pulmonary edema, pleural effusion or pneumothorax. Arch size is normal. Dual lead pacemaker seen with leads pr ojecting over the expected locations of the right atrium and right ventricle. Right shoulder arthropl asty. Plate and screw fixation for lower cervical anterior spinal fusion. IMPRESSION: 1. Mildly displaced acute posterior right third-fifth rib fractures. No pneumothorax or other acute c ardiopulmonary disease. Reviewed, dictated and finalized at location A. IMPRESSION: 1. Mildly displaced acute posterior right third-fifth rib fractures. No pneumot horax or other acute cardiopulmonary disease.
--- NOTE | 2021-07-12 08:09 | ECG_ITS ---
Measurements Intervals [place] Rate: 110 P: 94 CA: 161 QRS: -42 QRSD: 95 T: 81 QT: 330 QTc: 448 Interpretive Statements SINUS TACHYCARDIA LEFT AXIS DEVIATION CONSIDER INFERIOR INFARCT, AGE INDETERMINATE NONSPECIFIC ST & T-WAVE ABNORMALITY- HIGH LATERAL LEADS BASELINE ARTIFACT- I, AVR, AVL ABNORMAL ECG Electronically Signed On 07-12-2021 9:03:54 CDT by Mainor Salinas D.O.
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
[2021-07-12 08:20] LABS: Glucose Point of Care 177 mg/dl (65-105)
--- NOTE | 2021-07-12 08:20 | PC.NURSE ---
BS 177
--- NOTE | 2021-07-12 08:24 | PC.NURSE ---
Pt is 90% on room air and reports dyspnea due to injury to right side. Placed on 2 L NC O2 for comfort, O2 SAT increased to 95%. Pt to XRAY via stretcher at this time.
--- NOTE | 2021-07-12 08:26 | PC.NURSE ---
Spoke to girlfriend on phone per pts permission, gave verbal consent to give updates: Mile [phone]
[2021-07-12 08:29] LABS: Basophils Percent Auto 0.5 % (0.2-1.2); Eosinophils Absolute Auto 0.1 K/mm3 (0-0.3); Eosinophils Percent Auto 0.8 % (0-4.4); Hematocrit 36.5 % (42.0-52.0); Hemoglobin 11.5 g/dL (14.0-18.0); Immature Granulocyte Absolute 0.03 K/mm3 (0.00-0.031); Immature Granulocyte Percent A 0.5 % (0-0.5); Lymphocytes Absolute Auto 1.12 K/mm3 (0.9-3.2); Lymphocytes Percent Auto 17.4 % (18.3-44.2); Mean Corpuscular HGB Conc 31.5 g/dl (32-36); Mean Corpuscular Hemoglobin 30.1 pg (26-34); Mean Corpuscular Volume 95.5 fl (80-100); Mean Platelet Volume 9.2 fl (7.4-10.4); Monocytes Absolute Auto 0.5 K/mm3 (0.1-0.6); Monocytes Percent Auto 8.2 % (2.6-8.5); Neutrophils Absolute Auto 4.7 K/mm3 (1.3-6.7); Neutrophils Percent Auto 72.6 % (45.5-73.1); Platelet Count Result 99 k/mm3 (150-375); Red Blood Count 3.82 M/mm3 (4.6-6.20); Red Cell Distribution Width 14.6 % (11.5-14.5); White Blood Count 6.5 K/mm3 (4.5-10.0)
[2021-07-12 08:39] LABS: Alanine Aminotransferase 19 U/L (6-50); Albumin Level 3.1 g/dL (3.5-5.1); Alkaline Phosphatase 128 U/L (38-126); Anion Gap 8 mmol/L (8-16); Aspartate Amino Transferase 31 U/L (17-59); Bilirubin,Total 1.9 mg/dL (0.2-1.3); Blood Urea Nitrogen 15 mg/dL (9-20); Calcium 8.1 mg/dL (8.4-10.2); Carbon Dioxide 24 mmol/L (22-30); Chloride 108 mmol/L (98-107); Estimated CRCL calculation 55 ml/min; Estimated Glomerular Filt Rate > 60; Glucose 174 mg/dL (65-110); Potassium 3.5 mmol/L (3.4-5.0); Sodium 140 mmol/L (137-145)
[2021-07-12 08:40] LABS: Creatine Kinase 72 U/L (55-170)
[2021-07-12 08:47] LABS: INR 1.2; Prothrombin Time 14.6 Seconds (11.1-14.7)
[2021-07-12 08:48] LABS: Partial Thromboplastin Time 32.5 SECONDS (22.3-36.8)
[2021-07-12 08:56] LABS: Troponin I 0.075 ng/mL (0.000-0.034)
--- NOTE | 2021-07-12 09:29 | PC.NURSE ---
Pt to CT scan via stretcher at this time.
[2021-07-12 09:49] LABS: Ethanol < 10 mg/dL (<10)
[2021-07-12 10:04] LABS: Appearance Urine Clear (Clear); Bilirubin Urine 1+ (Negative); Blood Urine Negative (Negative); Color Urine Yellow (Yellow); Glucose Urine UA 2+ mg/dL (Negative); Ketones Urine Negative (Negative); Leukocyte Esterase Ur Negative LEU/UL (Negative); Nitrate Urine Negative (Negative); Protein Urine 2+ mg/dL (Negative); Specific Grav Ur 1.015 (1.001-1.035); pH Urine 5.5 (5.0-9.0)
[2021-07-12 10:06] LABS: Lipase 17 U/L (23-300)
[2021-07-12 10:07] LABS: Add Urine Microscopic? YES; Mucus Urine Rare /lpf; Squamous Epithelial Cell Urine Rare /hpf (Few); WBC Urine 0-3 /hpf
[2021-07-12] MEDS: SODIUM CHLORIDE 0.9% IV 1,000 ML 999 ML IV CONT (10:08)
[2021-07-12 10:10] LABS: Amphetamine Screen Urine Negative (Negative); Barbiturate Screen Urine Negative (Negative); Benzodiazepines Screen Urine Negative (Negative); Cannabinoid Screen Urine Positive (Negative); Cocaine Screen Urine Negative (Negative); Methadone Screen Urine Negative (Negative); Opiate Screen Urine Positive (Negative); Phencyclidine Screen Urine Negative (Negative)
[2021-07-12] MEDS: METOPROLOL TARTRATE 50 MG TAB 25 MG PO (11:07)
[2021-07-12] MEDS: ASPIRIN 81 MG CHEWABLE TABLET 324 MG PO (11:07)
[2021-07-12 11:41] LABS: Troponin I 0.068 ng/mL (0.000-0.034)
--- NOTE | 2021-07-12 11:41 | PC.NURSE ---
Spoke to contact - Mile on phone and gave update on pt status of ADMIT.
[2021-07-12 11:43] LABS: SARS-CoV-2 RNA PCR Negative
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
[2021-07-12 17:16] LABS: Troponin I 0.053 ng/mL (0.000-0.034)
--- NOTE | 2021-07-12 17:22 | ADMGEN ---
This patient, Michael Abdullahi, was admitted to IMU Room 209-01. Patient/family oriented to hospital policies and general routines including ID bracelet, bed and alarms, visiting hours, pain management, procedures, bathroom and other care routines, personal items, smoking policy, room service/diet, and visiting hours. Information on how to activate the Rapid Response Team has been discussed. Patient/Family are encouraged to report perceived risks to care and to ask questions if they do not understand what they are told or what they should do.
[2021-07-12 17:34] LABS: Glucose Point of Care 267 mg/dl (65-105)
[2021-07-12] MEDS: GABAPENTIN 300 MG CAPSULE 600 MG PO (18:02)
[2021-07-12] MEDS: FOLIC ACID 1 MG TABLET PO (18:02)
[2021-07-12] MEDS: LIPASE/AMYLASE/PROTEASE 12,000 UNITS CAP 2 CAP PO (18:02)
[2021-07-12] MEDS: THIAMINE HCL 100 MG TABLET PO (18:03)
[2021-07-12] MEDS: INSULIN ASPART (*BKC) 100 UNITS/ML SUB-Q (18:03)
[2021-07-12] MEDS: SODIUM CHLORIDE 0.9% IV 1,000 ML 125 ML IV CONT (18:03)
[2021-07-12] MEDS: traZODone HCL 50 MG TABLET 300 MG PO (20:52)
[2021-07-12] MEDS: oxyCODONE HCL (*CRX) 40 MG TAB SR 12HR 80 MG PO (20:52)
[2021-07-12] MEDS: METOPROLOL TARTRATE 25 MG TABLET PO (20:53)
[2021-07-12] MEDS: INSULIN GLARGINE (*BKC) 100 UNITS/ML 24 UNITS SUB-Q (21:02)
[2021-07-12 21:07] LABS: Glucose Point of Care 248 mg/dl (65-105)
[2021-07-13] VITALS (11 sets, daily range): BP systolic 113–181; BP diastolic 71–91; PULSE 62–76; RESP 14–20; TEMP 36.7–36.9; O2SAT 95–100
--- NOTE | 2021-07-13 | ECHO_ITS ---
Patient Info Name: Michael Abdullahi Age: 71 years : 1950 Gender: Male Ht: 69 in Wt: 152 lbs BSA: 1.83 m2 HR: 105 bpm BP: 170 / 82 mmHg Exam Date: 07/13/2021 10:01 AM Exam Location: [facility] Patient Status: Outpatient Admit Date: 07/12/2021 Staff Ordering Physician: Winston Emery MD Driver/Guide: Deuce Orourke RDCS, RT Attending Provider: Winston Emery MD Exam Type: CA echo doppler color flow Study Info Indications I50.9 - Heart failure, unspecified Complete two-dimensional, color flow and Doppler transthoracic echocardiogram is performed. Strain analysis performed. Summary 1. Complete two-dimensional, color flow and Doppler transthoracic echocardiogram is performed. 2. Left ventricular systolic function is normal, estimated at 60-65%. 3. There is moderately increased left ventricular wall thickness. 4. Linear artifact in right ventricle suggestive of catheter(s), pacemaker lead(s), or ICD lead(s). 5. Left atrial chamber dimension is mildly enlarged. 6. There is severe aortic valve sclerosis. 7. There is trace mitral valve regurgitation. 8. There is mild tricuspid valve regurgitation. 9. Mild pulmonary hypertension, estimated pulmonary arterial systolic pressure is 40 mmHg. Left Ventricle Left ventricular chamber dimension is normal. Left ventricular systolic function is normal, estimated at 60-65%. There is moderately increased left ventricular wall thickness. Left ventricular septal wall motion is normal. The left ventricular diastolic function is indeterminate. Global longitudinal strain is normal at -19 %. Right Ventricle Right ventricular chamber dimension is normal. Right ventricular systolic function is normal. Linear artifact in right ventricle suggestive of catheter(s), pacemaker lead(s), or ICD lead(s). Left Atria Left atrial chamber dimension is mildly enlarged. Right Atria Right atrial chamber dimension is normal. Atrial Septum Intact interatrial septum visualized by color flow imaging. Aortic Valve The aortic valve is trileaflet. There is severe aortic valve sclerosis. There is no aortic valve stenosis. There is no aortic valve regurgitation. Pulmonic Valve The pulmonic valve is normal. There is no pulmonic valve stenosis. There is no pulmonic regurgitation. Mitral Valve The mitral valve has normal leaflets. There is no mitral valve stenosis. There is trace mitral valve regurgitation. Tricuspid Valve The tricuspid valve leaflets are normal. There is no significant tricuspid valve stenosis. There is mild tricuspid valve regurgitation. Mild pulmonary hypertension, estimated pulmonary arterial systolic pressure is 40 mmHg. Pericardium/Pleural The pericardium appears normal. There is no pericardial effusion. Inferior Vena Cava Normal inferior vena cava with >50% collapse upon inspiration consistent with Empty right atrial pressure, 5 mmHg. Aorta The aortic root size at the sinus of Valsalva is normal. The prox ascending aorta size is normal. Left Ventricular Outflow Tract Name Value Normal LVOT 2D LVOT Diameter 2.1 cm LVOT Doppler
[2021-07-13 05:14] LABS: Alanine Aminotransferase 15 U/L (6-50); Albumin Level 2.5 g/dL (3.5-5.1); Alkaline Phosphatase 91 U/L (38-126); Anion Gap -1 mmol/L (8-16); Aspartate Amino Transferase 23 U/L (17-59); Bilirubin,Total 0.8 mg/dL (0.2-1.3); Blood Urea Nitrogen 14 mg/dL (9-20); Calcium 7.3 mg/dL (8.4-10.2); Carbon Dioxide 25 mmol/L (22-30); Chloride 110 mmol/L (98-107); Estimated CRCL calculation 55 ml/min; Estimated Glomerular Filt Rate > 60; Glucose 153 mg/dL (65-110); Magnesium 1.8 mg/dL (1.6-2.3); Phosphorus 2.8 mg/dL (2.5-4.5); Potassium 3.6 mmol/L (3.4-5.0); Sodium 134 mmol/L (137-145)
[2021-07-13 05:18] LABS: Ammonia < 9 umol/L (9-30)
[2021-07-13 05:22] LABS: Basophils Percent Auto 0.2 % (0.2-1.2); Eosinophils Absolute Auto 0.1 K/mm3 (0-0.3); Eosinophils Percent Auto 1.4 % (0-4.4); Hematocrit 28.1 % (42.0-52.0); Immature Granulocyte Absolute 0.03 K/mm3 (0.00-0.031); Immature Granulocyte Percent A 0.6 % (0-0.5); Lymphocytes Absolute Auto 1.04 K/mm3 (0.9-3.2); Lymphocytes Percent Auto 20.1 % (18.3-44.2); Mean Corpuscular Hemoglobin 30.8 pg (26-34); Mean Corpuscular Volume 96.2 fl (80-100); Mean Platelet Volume 9.9 fl (7.4-10.4); Monocytes Absolute Auto 0.4 K/mm3 (0.1-0.6); Monocytes Percent Auto 8.3 % (2.6-8.5); Neutrophils Absolute Auto 3.6 K/mm3 (1.3-6.7); Neutrophils Percent Auto 69.4 % (45.5-73.1); Platelet Count Result 96 k/mm3 (150-375); Red Blood Count 2.92 M/mm3 (4.6-6.20); Red Cell Distribution Width 14.6 % (11.5-14.5); White Blood Count 5.2 K/mm3 (4.5-10.0)
[2021-07-13 05:45] LABS: Carcinoembryonic Antigen 4.8 ng/mL (0.0-3.0)
[2021-07-13] MEDS: SODIUM CHLORIDE 0.9% IV 1,000 ML 125 ML IV CONT (05:56)
[2021-07-13 06:20] LABS: Folic Acid 18.9 ng/mL (2.76->20)
[2021-07-13 06:27] LABS: Thyroid Stimulating Hormone Reflex 0.126 uIU/mL (0.465-4.68)
[2021-07-13 07:01] LABS: Free T4 Free Thyroxine Reflex 1.78 ng/dL (0.78-2.19)
[2021-07-13 07:42] LABS: Total Triiodothyronine (T3) 0.75 NG/ML (0.97-1.69)
--- NOTE | 2021-07-13 08:00 | ECG_ITS ---
Measurements Intervals [place] Rate: 72 P: -82 MA: 180 QRS: -34 QRSD: 94 T: 32 QT: 352 QTc: 388 Interpretive Statements ELECTRONIC ATRIAL PACEMAKER ELECTRONIC VENTRIUCLAR COMPLEX AND VENTRICULAR PREMATURE COMPLEXES LEFT AXIS DEVIATION BORDERLINE T WAVE ABNORMALITY- INFERIOR LEADS BORDERLINE ECG Electronically Signed On 07-13-2021 9:49:25 CDT by Mainor Salinas D.O.
[2021-07-13 08:34] LABS: Hemoglobin A1C 8.9 % (<5.7)
[2021-07-13 08:50] LABS: Glucose Point of Care 170 mg/dl (65-105)
[2021-07-13] MEDS: oxyCODONE HCL (*CRX) 40 MG TAB SR 12HR 80 MG PO (08:50)
[2021-07-13] MEDS: GABAPENTIN 300 MG CAPSULE 600 MG PO ×2 (08:50→13:10)
[2021-07-13] MEDS: ATORVASTATIN 20 MG TABLET PO (08:50)
[2021-07-13] MEDS: EMPAGLIFLOZIN 25 MG TABLET PO (08:51)
[2021-07-13] MEDS: FOLIC ACID 1 MG TABLET PO (08:51)
[2021-07-13] MEDS: METOPROLOL TARTRATE 25 MG TABLET PO (08:51)
[2021-07-13] MEDS: THIAMINE HCL 100 MG TABLET PO (08:51)
[2021-07-13] MEDS: PANTOPRAZOLE 40 MG TABLET PO (08:51)
[2021-07-13] MEDS: LIPASE/AMYLASE/PROTEASE 12,000 UNITS CAP 2 CAP PO ×2 (08:51→13:10)
[2021-07-13] MEDS: ASPIRIN 325 MG TABLET PO (08:53)
[2021-07-13 12:19] LABS: Glucose Point of Care 300 mg/dl (65-105)
[2021-07-13] MEDS: INSULIN ASPART (*BKC) 100 UNITS/ML SUB-Q (13:10)
[2021-07-13 14:07] LABS: Hemoglobin 10.4 g/dL (14.0-18.0)
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
[2021-07-18 16:48] LABS: Alpha Fetoprotein Tumor Marker 0.8 ng/mL (<6.1)
--- NOTE | 2021-07-19 11:45 | PC.NURSE ---
AFP WNL at 0.8. Dr. Yuly brito.
== END 2021-07-13 16:14 | disposition home or self-care (01) ==
LOC: ANHED 11:55 → ANHIMU 12:48
PROVIDERS: Admitting Provider Internal Medicine; Emergency Provider Emergency Medicine; Visit Provider Internal Medicine
DX: R53.1 Weakness (principal); W19.XXXA Unspecified fall, initial encounter; S22.31XA Fracture of one rib, right side, initial encounter for closed fracture; R77.8 Other specified abnormalities of plasma proteins; R16.0 Hepatomegaly, not elsewhere classified; D69.6 Thrombocytopenia, unspecified; K74.60 Unspecified cirrhosis of liver; I10 Essential (primary) hypertension; E11.9 Type 2 diabetes mellitus without complications; Z96.642 Presence of left artificial hip joint; F11.20 Opioid dependence, uncomplicated; Z20.822 Contact with and (suspected) exposure to COVID-19
CPT/HCPCS: 36415; 70450; 71046; 71100; 71260; 72125; 74177; 80053; 80307; 81001; 82105; 82140; 82378; 82550; 82607; 82746; 82948; 83036; 83690; 83735; 84100; 84439; 84443; 84480; 84484; 85014; 85018; 85025; 85610; 85730; 93005; 93306; 93880; 96360; 96361; 97161; 97165; 99285; A9270; C9803; G0378; J1815; J7030; Q9967; U0003; U0005

== ENCOUNTER 2021-07-18 07:22 | Emergency (ER) | payer MEDICARE, SELFPAY ==
[2021-07-18] VITALS (8 sets, daily range): BP systolic 120–144; BP diastolic 67–97; PULSE 79–105; RESP 15–20; TEMP 36.9; O2SAT 92–95
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
--- NOTE | 2021-07-18 07:44 | PC.NURSE ---
BS 231
[2021-07-18] MEDS: SODIUM CHLORIDE 0.9% IV 1,000 ML 999 ML IV CONT (07:45)
[2021-07-18 07:49] LABS: Glucose Point of Care 231 mg/dl (65-105)
[2021-07-18 07:51] LABS: Basophils Percent Auto 0.2 % (0.2-1.2); Eosinophils Absolute Auto 0.1 K/mm3 (0-0.3); Eosinophils Percent Auto 0.8 % (0-4.4); Hematocrit 34.7 % (42.0-52.0); Hemoglobin 11.1 g/dL (14.0-18.0); Immature Granulocyte Absolute 0.05 K/mm3 (0.00-0.031); Immature Granulocyte Percent A 0.6 % (0-0.5); Lymphocytes Absolute Auto 0.84 K/mm3 (0.9-3.2); Lymphocytes Percent Auto 9.6 % (18.3-44.2); Mean Corpuscular Hemoglobin 30.1 pg (26-34); Mean Platelet Volume 10.1 fl (7.4-10.4); Monocytes Absolute Auto 0.9 K/mm3 (0.1-0.6); Monocytes Percent Auto 10.1 % (2.6-8.5); Neutrophils Absolute Auto 6.9 K/mm3 (1.3-6.7); Neutrophils Percent Auto 78.7 % (45.5-73.1); Platelet Count Result 125 k/mm3 (150-375); Red Blood Count 3.69 M/mm3 (4.6-6.20); Red Cell Distribution Width 14.6 % (11.5-14.5); White Blood Count 8.7 K/mm3 (4.5-10.0)
[2021-07-18 08:01] LABS: Ammonia < 9 umol/L (9-30); Creatine Kinase 57 U/L (55-170)
[2021-07-18 08:03] LABS: Alanine Aminotransferase 16 U/L (6-50); Albumin Level 3.1 g/dL (3.5-5.1); Alkaline Phosphatase 134 U/L (38-126); Anion Gap 8 mmol/L (8-16); Aspartate Amino Transferase 28 U/L (17-59); Bilirubin,Total 1.2 mg/dL (0.2-1.3); Blood Urea Nitrogen 11 mg/dL (9-20); Carbon Dioxide 22 mmol/L (22-30); Chloride 103 mmol/L (98-107); Estimated CRCL calculation 47 ml/min; Estimated Glomerular Filt Rate 60; Glucose 238 mg/dL (65-110); Lipase 32 U/L (23-300); Sodium 133 mmol/L (137-145)
[2021-07-18 08:06] LABS: INR 1.2; Prothrombin Time 15.1 Seconds (11.1-14.7)
[2021-07-18 08:07] LABS: Partial Thromboplastin Time 35.9 SECONDS (22.3-36.8)
[2021-07-18] MEDS: POTASSIUM CHLORIDE 20 MEQ TABLET 40 MEQ PO (08:35)
--- NOTE | 2021-07-18 09:21 | PC.NURSE ---
Pt unable to provide u/a, offered to straight cath several times and pt declined. Will continue to try. Fluids infused (1000 MLS), given urinal, call light in reach.
--- NOTE | 2021-07-18 09:43 | PC.NURSE ---
patient's primary contact called and states that she will be at the hospital in one or two hours to pick patient up.
== END 2021-07-18 10:10 | disposition home or self-care (01) ==
PROVIDERS: Emergency Provider General Practice
DX: F11.20 Opioid dependence, uncomplicated (principal); E87.6 Hypokalemia; E11.65 Type 2 diabetes mellitus with hyperglycemia; G89.4 Chronic pain syndrome; E11.42 Type 2 diabetes mellitus with diabetic polyneuropathy; I10 Essential (primary) hypertension; K74.60 Unspecified cirrhosis of liver; M19.90 Unspecified osteoarthritis, unspecified site; E87.1 Hypo-osmolality and hyponatremia; D64.9 Anemia, unspecified; D69.6 Thrombocytopenia, unspecified; Z96.642 Presence of left artificial hip joint; Z95.0 Presence of cardiac pacemaker; Z79.4 Long term (current) use of insulin; Z79.84 Long term (current) use of oral hypoglycemic drugs; Z79.82 Long term (current) use of aspirin; Z98.49 Cataract extraction status, unspecified eye; Z86.19 Personal history of other infectious and parasitic diseases; Z87.891 Personal history of nicotine dependence
CPT/HCPCS: 36415; 80053; 82140; 82550; 82948; 83690; 85025; 85610; 85730; 96360; 96361; 99283; A9270; J7030